=== PATIENT | female | born 1970 | race Hispanic/Latino ===

== ENCOUNTER → 2023-07-01 | Emergency (ER) | payer OTHER ==
[~2023-07-01] MED LIST: CEFTRIAXONE 1000 MG/VIAL ONE
--- OUTSIDE RECORDS SUMMARY | 2023-07-01 11:44 | XMS REPORT | Continuity of Care Document ---
Author Name Unknown Address [address] [place] [address] [facility] Address [address] 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 [facility] [id number] Mixed hyperlipid emia Problem Active [facility] Allergies, Adverse Reactions, Alerts Allergy Name Allergy Type Status Severity Reaction(s) Onset Date Inactive Date Treating Clinician Comments Source meperidi ne meperidi ne Active blood pressure going up/down [facility] NO KNOWN ALLERGIE S Drug Class Active [facility] Social History Social Habit Start Date Stop Date Quantity Comments Source Sex Assigned At [facility] History of Tobacco Use [facility] Exposure to SARS-CoV-2 (event) Not sure [facility] Smoking Status Start Date Stop Date Source Unknown if ever smoked [facility] Never Smoker [facility] Medications Ordered Medication Name Filled Medication Name Start Date Stop Date Current Medication? Ordering Clinician Indication Dosage Frequency Signature (SIG) Comments Components Source Bactrim DS 800-160 MG Bactrim DS 800-160 MG 2019-05 006 00:00: 00 02-19 00:00 :00 No 1{table t} QD Bactrim DS 800-160 MG Divalproex Sodium ER Divalproex Sodium ER Yes Erika Aldrich 1 tablet [facility] Lamotrigine Lamotrigine Yes Erika Nate 1 tablet [facility] Divalproex Sodium ER 500 MG Divalproex Sodium ER 500 MG No 1{table t} BID Divalproex Sodium ER 500 MG Lamotrigine 100 MG Lamotrigine 100 MG No 1{table t} BID Lamotrigin e 100 MG Divalproex Sodium ER 500 MG Divalproex Sodium ER 500 MG No 1{table t} BID Divalproex Sodium ER 500 MG Lamotrigine 100 MG Lamotrigine 100 MG No 1{table t} BID Lamotrigin e 100 MG Lamotrigine 100 MG Lamotrigine 100 MG No 1{table t} BID Lamotrigin e 100 MG Divalproex Sodium ER 500 MG Divalproex Sodium ER 500 MG No 1{table t} BID Divalproex Sodium ER 500 MG Valacyclovi r HCl 1 GM Valacyclovi r HCl 1 GM No 1{table t} TID Valacyclov ir HCl 1 GM Divalproex Sodium ER 500 MG Divalproex Sodium ER 500 MG No 1{table t} BID Divalproex Sodium ER 500 MG Valacyclovi r HCl 1 GM Valacyclovi r HCl 1 GM No 1{table t} TID Valacyclov ir HCl 1 GM Lamotrigine 100 MG Lamotrigine 100 MG No 1{table t} BID Lamotrigin e 100 MG Vital Signs Vital Name Observation Time Observation Value Comments Jarocho spencer height 2020-04-04 11:00:00 61 [in_i] Commo n [facility] weight 2020-04-04 11:00:00 113 [lb_av] Comm on [facility] bmi 2020-04-04 11:00:00 21.35 kg/m2 Comm on [facility] height 2020-03-24 14:40:00 61 [in_i] Commo n [facility] weight 2020-03-24 14:40:00 112.6 [lb_av] Co mmon [facility] temperature 2020-03-24 14:40:00 97.2 [degF] Com mon [facility] bmi 2020-03-24 14:40:00 21.27 kg/m2 Comm on [facility] oximetry 2020-03-24 14:40:00 99 % Commo n [facility] respiratory rate 2020-03-24 14:40:00 16 /min [facility] blood pressure systolic 2020-03-24 14:40:00 111 mm[Hg] Common [facility] blood pressure diastolic 2020-03-24 14:40:00 71 mm[Hg] Common [facility] height 2020-02-26 09:00:00 61 [in_i] Commo n [facility] weight 2020-02-26 09:00:00 114.1 [lb_av] Co mmon [facility] temperature 2020-02-26 09:00:00 97.3 [degF] Com [facility] bmi 2020-02-26 09:00:00 21.56 kg/m2 Comm on [facility] oximetry 2020-02-26 09:00:00 96 % Commo n [facility] blood pressure systolic 2020-02-26 09:00:00 111 mm[Hg] [facility] diastolic 2020-02-26 09:00:00 73 mm[Hg] [facility] Encounters Start Date/Time End Date/Time Encounter Type Admission Type Attending [facility] Care Facility Care Department Encounter ID Source 2021-06-10 12:07:11 [facility] [id number] [facility] 2021-06-10 12:03:05 [facility] [id number] [facility] 2021-06-10 11:39:35 [facility] [id number] [facility] 2021-06-10 11:39:08 [facility] [id number] [facility] 2021-06-10 11:34:08 [facility] [id number] [facility] 2021-06-10 11:19:19 [facility] [id number] [facility] 2021-06-10 11:16:17 [facility] [id number] [facility] 2020-09-04 09:03:43 2020-09-04 09:23:43 Laboratory Only Lab, Adc Fam Pob Tara Farris [facility] [id number] [facility] 2020-09-04 08:40:00 2020-09-04 08:40:00 Outpatient R [facility] [id number] [facility] 2020-09-04 08:40:00 2020-09-04 08:40:00 Outpatient R TARA JONES [facility] [id number] [facility] 2020-04-04 00:00:00 2020-04-04 00:00:00 OFFICE VISIT EST PT LEVEL 3 [facility] [id number] [facility] 2020-03-24 00:00:00 2020-03-24 00:00:00 OFFICE VISIT EST PT LEVEL 3 [facility] [id number] [facility] 2020-02-26 00:00:00 2020-02-26 00:00:00 (PROC) Procedure [facility] [id number] [facility] 2020-02-13 00:00:00 2020-02-13 00:00:00 (TEL) STLMLC ST[facility] [id number] [facility] 2020-01-03 09:17:00 2020-01-03 09:17:00 [facility] [id number] [facility] 2019-12-26 11:15:00 2019-12-26 11:15:00 [facility] [id number] [facility] 2019-12-21 09:30:00 2019-12-21 09:30:[address] [facility] [address] [facility] [id number] [facility] 2019-09-10 13:45:00 2019-09-10 13:45:00 [facility] [address] [facility] [id number] [facility]
[2023-07-01 12:40] LABS: Absolute Lymphocytes (CBC) 2.3 K/uL (0.7-4.9); Hematocrit 35.8 % (36.0-45.0); Lymphocytes % 19.8 % (15.3-44.8); MCV 91.4 fL (80-100); Platelets 296 thou/uL (152-406); RBC Red Blood Cell Count 3.91 M/uL (3.86-4.86)
[2023-07-01 12:56] LABS: Specific Gravity 1.019 (1.005-1.030); Urine Bacteria >50 /HPF (<20); Urine Bilirubin NEGATIVE (Negative); Urine Blood 3+ (OVER) (Negative); Urine Clarity Extremely Turbid (Clear); Urine Color Dark-Brown (Yellow); Urine Glucose NEGATIVE (Negative); Urine Mucus Slight /HPF (None Seen); Urine Protein 2+ (Negative); Urine RBC >50 /HPF (None Seen); Urine Urobilinogen Normal (Normal)
[2023-07-01 13:06] LABS: Albumin 3.6 g/dL (3.4-5.0); Bilirubin Total 0.3 mg/dL (0.2-1.0); Potassium 3.8 mEq/L (3.5-5.1); Protein, Total 8.1 g/dL (6.4-8.2)
--- NOTE | 2023-07-01 14:33 | RAD REPORT ---
EXAM DESCRIPTION: CT - Abdomen Pelvis W Contrast - 07/01/2023 1:41 pm CLINICAL HISTORY: back pain, hematuria COMPARISON: No comparisons TECHNIQUE: Thin cut axial CT imaging of the abdomen and pelvis was performed following intravenous a dministration of iodine contrast. Multiplanar reformats were generated and reviewed. All CT scans are performed using dose optimization technique as appropriate and may include automated exposure control or mA/KV adjustment according to patient size. FINDINGS: No suspicious findings in the lung bases. The liver, spleen, adrenal glands, and pancreas show no suspicious findings. Gallbladder and biliary tree are also without suspicious finding. Sub centimeter right renal cortical lesions, not well characterized, but statistically suggest small cysts. Symmetric renal function is seen with no hydronephrosis or suspicious renal mass. No dilated bowel loops or bowel wall thickening. No free air, free fluid or inflammatory stranding. N o hernia, mass or bulky lymphadenopathy. The urinary bladder is decompressed which limits evaluation, however with diffuse wall thickening and mucosal hyperenhancement. . No suspicious bony findings. IMPRESSION: Decompression of the urinary bladder limits evaluation, however there is diffuse wall th ickening with mucosal hyperenhancement, please correlate clinically for suggestion of acute cystitis. No other acute or suspicious intra-abdominal process.
--- NOTE | 2023-07-01 15:56 | EDPHYS ---
Physician Documentation [facility] Name: Arely Carl Age: 52 yrs Sex: Female : 1970 Arrival Date: 07/01/2023 Time: 11:40 Bed 12 Private MD: ED Physician Star Ferrell HPI: 07/01 14:00 This 52 yrs old Female presents to ER via Ambulatory with complaints of blood rn in urine, Back Pain. 14:00 The patient presents with urinary symptoms, hematuria. Onset: The symptoms/episode rn began/occurred today. Modifying factors: The symptoms are alleviated by nothing, the symptoms are aggravated by urinating. Associated signs and symptoms: Pertinent negatives: fever, urinary frequency, vaginal bleeding. Severity of symptoms: At their worst the symptoms were mild, in the emergency department the symptoms are unchanged. The patient has not experienced similar symptoms in the past. The patient has not recently seen a physician. Patient reports hematuria that began today, no trauma, no blood thinners. No vomiting. No blood in stool. Reports blood-tinged urine and noticed 1 clot.. Historical: - Allergies: 12:11 Demerol; iw 12:11 Benadryl; iw - PMHx: 12:11 seizures; iw - PSHx: 12:11 hysterectomy; section; ovarian cyst; iw - Immunization history:: Adult Immunizations not up to date. - Social history:: Smoking status: Patient denies any tobacco usage or history of. - Family history:: not pertinent. ROS: 14:00 Constitutional: Negative for fever, chills, and weight loss, Eyes: Negative for injury, rn pain, redness, and discharge, Cardiovascular: Negative for chest pain, palpitations, and edema, Respiratory: Negative for shortness of breath, cough, wheezing, and pleuritic chest pain, Abdomen/GI: Negative for abdominal pain, nausea, vomiting, diarrhea, and constipation, Back: Positive for lower back pain : Positive for hematuria MS/Extremity: Negative for injury and deformity, Skin: Negative for injury, rash, and discoloration, Neuro: Negative for headache, weakness, numbness, tingling, and seizure, Exam: 14:00 Constitutional: This is a well developed, well nourished patient who is awake, alert, rn and in no acute distress. Eyes: Normal conjunctiva Cardiovascular: Regular rate and rhythm. No pulse deficits. Respiratory: No increased work of breathing, no retractions or nasal flaring. Abdomen/GI: Soft, nontender Back: No CVA tenderness Neuro: Awake and alert, GCS 15. Normal gait. Vital Signs: 12:10 BP 124 / 82; Pulse 106; Resp 16; Pulse Ox 100% ; iw 12:12 Temp 98.4; Weight 52.16 kg; Height 5 ft. 1 in. ; Pain 4/10; iw 15:20 BP 114 / 85; Pulse 87; Resp 16 S; Pulse Ox 100% on R/A; aa5 12:12 Body Mass Index 21.73 (52.16 kg, 154.94 cm) iw 12:12 Pain Scale: Adult iw MDM: 11:47 Patient medically screened. rn 15:54 Differential diagnosis: urinary tract infection, Cystitis, pyelonephritis, kidney rn cancer. Differential diagnosis: malignancy. Data reviewed: vital signs, nurses notes. Data reviewed: lab test result(s), radiologic studies, CT scan, and as a result, I will discharge patient. Counseling: I had a detailed discussion with the patient and/or guardian regarding the historical points, exam findings, and any diagnostic results supporting the discharge/admit diagnosis, lab results, radiology results, the need for outpatient follow up, to return to the emergency department if symptoms worsen or persist or if there are any questions or concerns that arise at home. Special discussion: I discussed with the patient/guardian in detail that at this point there is no indication for admission to the hospital. It is understood, however, that if the symptoms persist or worsen the patient needs to return immediately for re-evaluation. ED course: I have personally reviewed all of the results, including but not limited to blood tests and imaging deemed necessary to safely discharge this patient at this time. All results given to and printed out for patient. I personally went over all the results with the patient and answered all questions. Patient will follow-up with PCP and or specialist as discussed. Return precautions given and understood.. 07/01 12:13 Order name: CBC with Diff; Complete Time: 13:55 rn 07/01 12:13 Order name: CMP; Complete Time: 13:55 rn 07/01 12:13 Order name: Urinalysis w/ reflexes; Complete Time: 13:55 rn 07/01 13:00 Order name: Urine Culture EDMS 07/01 12:13 Order name: CT Abd/Pelvis - IV Contrast Only; Complete Time: 14:36 rn 07/01 12:13 Order name: IV Saline Lock; Complete Time: 12:25 rn 07/01 12:13 Order name: Labs collected and sent; Complete Time: 12:25 rn Administered Medications: 15:10 Drug: Rocephin IV 1 grams IV at calculated rate once; Given slow IV push per pharmacy aa5 instructions Route: IV; Rate: calculated rate; Site: right antecubital; Disposition Summary: 07/01/23 15:55 Discharge Ordered Notes: Location: Home rn Problem: new rn Symptoms: have improved rn Condition: Stable rn Diagnosis - UTI/ Urinary tract infection, site not specified rn - Acute cystitis with hematuria rn Followup: rn - With: Private Physician - When: As needed - Reason: Recheck today's complaints, Re-evaluation by your physician Discharge Instructions: - Discharge Summary Sheet rn - Hematuria, Adult rn - Urinary Tract Infection, Adult rn Forms: - Medication Reconciliation Form rn - Thank You Letter rn - Antibiotic event planning intern - Prescription Opioid Use rn - Patient Portal Instructions rn - Leadership Thank You Letter rn Prescriptions: - cefpodoxime 100 mg Oral Tablet - take 2 tablets ORAL route every 12 hours for 10 days take with food; 40 tablet; rn Refills: 0, Product Selection Permitted Signatures: Dispatcher [employer] Lydia Ni, RN Star Gutierrez MD MD rn Calderon, Audri, RN RN aa5
--- NOTE | 2023-07-01 15:56 | ER ---
Nurse's Notes [facility] Name: Arely Carl Age: 52 yrs Sex: Female : 1970 Arrival Date: 07/01/2023 Time: 11:40 Bed 12 Private MD: Diagnosis: UTI/ Urinary tract infection, site not specified;Acute cystitis with hematuria Presentation: 07/01 12:10 Chief complaint: Patient states: blood in urine since this morning and back pain , iw denies vaginal bleeding. Coronavirus screen: At this time, the client does not indicate any symptoms associated with coronavirus-19. Ebola Screen: Patient negative for fever greater than or equal to 101.5 degrees Fahrenheit, and additional compatible Ebola Virus Disease symptoms Patient denies exposure to infectious person. Patient denies travel to an Ebola-affected area in the 21 days before illness onset. No symptoms or risks identified at this time. Initial Sepsis Screen: Does the patient meet any 2 criteria? No. Patient's initial sepsis screen is negative. Does the patient have a suspected source of infection? No. Patient's initial sepsis screen is negative. Risk Assessment: Do you want to hurt yourself or someone else? Patient reports no desire to harm self or others. Onset of symptoms was July 01, 2023. 12:10 Method Of Arrival: Ambulatory iw 12:10 Acuity: ANTONIO 3 iw Historical: - Allergies: 12:11 Demerol; iw 12:11 Benadryl; iw - PMHx: 12:11 seizures; iw - PSHx: 12:11 hysterectomy; section; ovarian cyst; iw - Immunization history:: Adult Immunizations not up to date. - Social history:: Smoking status: Patient denies any tobacco usage or history of. - Family history:: not pertinent. Assessment: 15:10 Reassessment: Patient is alert, oriented x 3, equal unlabored respirations, skin aa5 warm/dry/pink. 16:10 Reassessment: Patient is alert, oriented x 3, equal unlabored respirations, skin aa5 warm/dry/pink. Vital Signs: 12:10 BP 124 / 82; Pulse 106; Resp 16; Pulse Ox 100% ; iw 12:12 Temp 98.4; Weight 52.16 kg; Height 5 ft. 1 in. ; Pain 4/10; iw 15:20 BP 114 / 85; Pulse 87; Resp 16 S; Pulse Ox 100% on R/A; aa5 12:12 Body Mass Index 21.73 (52.16 kg, 154.94 cm) iw 12:12 Pain Scale: Adult ED Course: 11:43 Patient arrived in ED. mg5 11:47 Star Ferrell MD is Attending Physician. rn 12:11 Triage completed. iw 12:12 Arm band placed on. iw 12:25 Inserted saline lock: 22 gauge in left antecubital area, using aseptic technique. mb9 12:25 CBC with Diff Sent. mb9 12:25 CMP Sent. mb9 12:25 Urinalysis w/ reflexes Sent. mb9 13:43 CT Abd/Pelvis - IV Contrast Only In Process Unspecified. EDMS 16:10 No provider procedures requiring assistance completed. IV discontinued, intact, aa5 bleeding controlled, No redness/swelling at site. Pressure dressing applied. Administered Medications: 15:10 Drug: Rocephin IV 1 grams IV at calculated rate once; Given slow IV push per pharmacy aa5 instructions Route: IV; Rate: calculated rate; Site: right antecubital; Outcome: 15:55 Discharge ordered by MD. rn 16:10 Discharged to home ambulatory, with significant other, aa5 16:10 Condition: stable 16:10 Discharge instructions given to patient, Instructed on discharge instructions, follow up and referral plans. medication usage, Demonstrated understanding of instructions, follow-up care, medications, Prescriptions given X 1, 16:13 Patient left the ED. aa5 Signatures: Dispatcher [employer] EDMS Lydia Hernandez RN RN Star Ferrell MD MD rn Calderon, Audri, RN RN aa5 Oma Zarate RN RN Veronika Dave mg5
[2023-07-01 16:39] VITALS: BP 114/85; TEMP 98.4; O2SAT 100
== END ==
LOC: ER 11:40
DX: N30.01 Acute cystitis with hematuria (principal); Z88.5 Allergy status to narcotic agent; Z88.8 Allergy status to other drugs, medicaments and biological substances
CPT/HCPCS: 87088; 85025; 81001; 87086; 36415; 87077; 87186; 80053; 74177; 96374; 99284; Q9967; J0696

== ENCOUNTER 2024-05-30 08:34 | Emergency (ER) | payer OTHER ==
--- OUTSIDE RECORDS SUMMARY | 2024-05-30 08:38 | XMS REPORT | Continuity of Care Document ---
Author Name Unknown Address [address] [facility] [place] [address] [facility] thconnect Address [address] [facility] [place] [address] Care Team Providers Care Machine Bobbin Winder Name Role Phone PCP, PATIENT DOES NOT HAVE A Primary Care Physic zaynab Unavailable Marjorie Lowe Attending Clinician Unavail able Leonardo Mc Attending Clinician Unavailable Shaggy Pandey Attending Clinician [phone] Unknown, Attending Attending Clinician Unavailab SHAGGY Subramanian Attending Clinician Unavailable Lab, Adc Fam Pob I Attending Clinician Unavailab Tara Valdovinos Attending Clinician [phone] TARA JONES Attending Clinician Unavailable Payers Payer Name Policy Type Policy Number Effective Date Expirati on Date Source [employer] 53 [id number] 2019 00:00:00 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 [id number] Mixed hyperlipid emia Problem Active [facility] [id number] Seasonal allergies Problem [facility] [id number] Seizure disorder Problem [facility] [id number] Pure hypertrigl yceridemia Problem [facility] [id number] Normocytic anemia Problem [facility] Allergies, Adverse Reactions, Alerts Allergy Name Allergy Type Status Severity Reaction(s) Onset Date Inactive Date Treating Clinician Comments Source NO KNOWN ALLERGIE S Drug Class Active [facility] diphenhy dramine diphenhy dramine Active had seizure [facility] meperidi ne meperidi ne Active blood pressure going up/down [facility] Social History Social Habit Start Date Stop Date Quantity Comments Source Sex Assigned At [facility] History of Tobacco Use [facility] Exposure to SARS-CoV-2 (event) Not sure [facility] Sexual orientation U [facility] Smoking Status Start Date Stop Date Source Tobacco smoking consumption unknown [facility] Never Smoker [facility] Medications Ordered Medication Name Filled Medication Name Start Date Stop Date Current Medication? Ordering Clinician Indication Dosage Frequency Signature (SIG) Comments Components Source levoFLOXaci n 750 MG levoFLOXaci n 750 MG 2023-05 00:00: 00 No 1{table t} QD levoFLOXac in 750 MG predniSONE 20 mg tablet 09-30 00:00: 00 10-06 04:59 :00 No [id number] 40mg Take 2 tablets by mouth in the morning for 5 days. [facility] dexamethaso ne (DECADRON) injection 10 mg 09-29 18:30: 00 09-29 17:59 :00 No [id number] 10mg 10 mg, Intramuscu lar, ONCE, 1 dose, On Tue09/30/23 at 1330, Routine [facility] promethazin e-dextromet horphan 6.25-15 mg/5 mL syrup 09-29 00:00: 00 Yes [id number] 5mL Take 5 mL by mouth 4 (four) times daily as needed for Cough. [facility] albuterol 90 mcg/actuati on inhaler 09-29 00:00: 00 Yes [id number] 2{puff} Inhale 2 Puffs every 6 (six) hours as needed for Bronchospa sm. [facility] lamoTRIgine 100 MG lamoTRIgine 100 MG No 1{table t} BID lamoTRIgin e 100 MG [place] 3 [place] 3 No [place] 3 Divalproex Sodium ER 500 MG Divalproex Sodium ER 500 MG No 1{table t} BID Divalproex Sodium ER 500 MG Vital Signs Vital Name Observation Time Observation Value Comments S johanna height 2024-05-25 10:30:00 61 [in_i] Commo n [facility] weight 2024-05-25 10:30:00 111 [lb_av] Comm on [facility] temperature 2024-05-25 10:30:00 97.2 [degF] Com [facility] bmi 2024-05-25 10:30:00 20.97 kg/m2 Comm on [facility] oximetry 2024-05-25 10:30:00 98 % Commo n [facility] blood pressure systolic 2024-05-25 10:30:00 112 mm[Hg] [facility] blood pressure diastolic 2024-05-25 10:30:00 60 mm[Hg] [facility] height 2024-05-03 15:30:00 61 [in_i] Commo n [facility] weight 2024-05-03 15:30:00 112 [lb_av] Comm on [facility] temperature 2024-05-03 15:30:00 97.2 [degF] Com [facility] bmi 2024-05-03 15:30:00 21.16 kg/m2 Comm on [facility] oximetry 2024-05-03 15:30:00 96 % Commo n [facility] blood pressure systolic 2024-05-03 15:30:00 126 mm[Hg] Common [facility] blood pressure diastolic 2024-05-03 15:30:00 62 mm[Hg] [facility] Systolic blood pressure 2023-09-30 17:39:00 127 mm[Hg] [facility] Diastolic blood pressure 2023-09-30 17:39:00 85 mm[Hg] [facility] Heart rate 2023-09-30 17:39:00 119 /min [facility] acute hospital Body temperature 2023-09-30 17:39:00 37.06 Barb [facility] Respiratory rate 2023-09-30 17:39:00 18 /min [facility] Body height 2023-09-30 17:39:00 154.9 cm [facility] Body weight 2023-09-30 17:39:00 49.805 kg [facility] BMI 2023-09-30 17:39:00 20.75 kg/m2 [facility] Oxygen saturation in Arterial blood by Pulse oximetry 2023-09-30 17:39:00 98 /min [facility] height 2020-04-04 11:00:00 61 [in_i] Commo n [facility] weight 2020-04-04 11:00:00 113 [lb_av] Comm on [facility] bmi 2020-04-04 11:00:00 21.35 kg/m2 Comm on [facility] height 2020-03-24 14:40:00 61 [in_i] Commo n [facility] weight 2020-03-24 14:40:00 112.6 [lb_av] Co mmon [facility] temperature 2020-03-24 14:40:00 97.2 [degF] Com mon [facility] bmi 2020-03-24 14:40:00 21.27 kg/m2 Comm on [facility] oximetry 2020-03-24 14:40:00 99 % Commo n [facility] respiratory rate 2020-03-24 14:40:00 16 /min Common [facility] blood pressure systolic 2020-03-24 14:40:00 111 mm[Hg] Common [facility] blood pressure diastolic 2020-03-24 14:40:00 71 mm[Hg] Common Spiri [facility] height 2020-02-26 09:00:00 61 [in_i] Commo n [facility] weight 2020-02-26 09:00:00 114.1 [lb_av] Co mmon [facility] temperature 2020-02-26 09:00:00 97.3 [degF] Com mon [facility] bmi 2020-02-26 09:00:00 21.56 kg/m2 Comm on [facility] oximetry 2020-02-26 09:00:00 96 % Commo n [facility] blood pressure systolic 2020-02-26 09:00:00 111 mm[Hg] [facility] blood pressure diastolic 2020-02-26 09:00:00 73 mm[Hg] [facility] height 2020-02-26 09:00:00 61 [in_i] Commo n [facility] weight 2020-02-26 09:00:00 114.1 [lb_av] Co mmon [facility] temperature 2020-02-26 09:00:00 97.3 [degF] Com mon [facility] bmi 2020-02-26 09:00:00 21.56 kg/m2 Comm on [facility] oximetry 2020-02-26 09:00:00 96 % Commo n [facility] blood pressure systolic 2020-02-26 09:00:00 111 mm[Hg] [facility] blood pressure diastolic 2020-02-26 09:00:00 73 mm[Hg] [facility] Procedures Procedure Date / Time Performed Performing Clinicia n Source POCT MOLECULAR STREP 2023-09-30 17:30:00 Unknown, Atte nadineing [facility] Encounters Start Date/Time End Date/Time Encounter Type Admission Type Attending [facility] Care Facility Care Department Encounter ID Source 2024-05-23 11:06:00 [facility] [id number] [facility] 2024-05-03 15:01:00 Outpatient Marjorie Lowe [facility] [id number] [facility] 2024-05-01 08:59:00 Outpatient [facility] [id number] [facility] 2021-06-10 12:07:11 Outpatient Mc, Leonardo [facility] [id number] [facility] 2021-06-10 12:03:05 Outpatient Mc, Leonardo [facility] [id number] [facility] 2021-06-10 11:39:35 Outpatient Mc, Leonardo [facility] [id number] [facility] 2021-06-10 11:39:08 Outpatient Mc, Leonardo [facility] [id number] [facility] 2021-06-10 11:34:08 Outpatient Mc, Leonardo [facility] [id number] [facility] 2021-06-10 11:19:19 Outpatient Mc, Leonardo [facility] [id number] [facility] 2021-06-10 11:16:17 Outpatient Mc, Leonardo [facility] [id number] [facility] 2024-05-25 00:00:00 2024-05-25 00:00:00 OFFICE VISIT ESTAB PT LEVEL [id number] [facility] 2024-05-03 00:00:00 2024-05-03 00:00:00 (MEDICAL PLANNER) New Patient [facility] [id number] [facility] 2023-09-30 12:00:00 2023-09-30 13:01:23 Urgent Care Shaggy Guerra, Attending [facility] [id number] [facility] 2023-09-30 12:00:00 2023-09-30 13:01:23 Outpatient R WAGNER BELENJOCELYNE [facility] [id number] [facility] 2020-09-04 09:03:43 2020-09-04 09:23:43 Laboratory Only Lab, Adc Fam Pob Tara Farris [facility] Office [facility] [id number] [facility] 2020-09-04 08:40:00 2020-09-04 08:40:00 Outpatient R [facility] [id number] [facility] 2020-09-04 08:40:00 2020-09-04 08:40:00 Outpatient R TARA JONES [facility] [id number] [facility] 2020-04-04 00:00:00 2020-04-04 00:00:00 OFFICE VISIT EST PT LEVEL [id number] [facility] 2020-03-24 00:00:00 2020-03-24 00:00:00 OFFICE VISIT EST PT LEVEL [id number] [facility] 2020-02-26 00:00:00 2020-02-26 00:00:00 (PROC) Procedure [facility] [id number] [facility] 2020-02-13 00:00:00 2020-02-13 00:00:00 (TEL) [facility] [id number] [facility] 2020-01-03 09:17:00 2020-01-03 09:17:00 [facility] [id number] [facility] 2019-12-26 11:15:00 2019-12-26 11:15:00 [facility] [id number] [facility] 2019-12-21 09:30:00 2019-12-21 09:30:00 [facility] [id number] [facility] 2019-09-10 13:45:00 2019-09-10 13:45:00 Outpatient [facility] [id number] [facility] Results Test Description Test Time Test Comments Results Result Co mments Source [facility]
[2024-05-30] MEDS ORDERED: KETOROLAC 30 MG/ML INJ ONE (08:59)
[2024-05-30] MEDS ORDERED: NA CHLORIDE 0.9% 500 ML ONE (08:59)
[2024-05-30 09:14] LABS: Absolute Basophils 0.1 K/uL (0-0.5); Absolute Eosinophils 0.1 K/uL (0-0.5); Absolute Lymphocytes (CBC) 2.8 K/uL (0.7-4.9); Absolute Neutrophil 3.4 K/uL (1.8-8.0); Basophils % 0.8 % (0-1.3); Eosinophils % 1.8 % (0-4.4); Hematocrit 34.3 % (36.0-45.0); Hemoglobin 11.3 g/dL (12.0-15.0); MCH 29.7 pg (27.0-35.0); MCHC 32.8 g/dL (32.0-36.0); MCV 90.4 fL (80-100); MPV 8.4 fL (7.6-11.3); Monocytes % 13.6 % (3.3-12.3); Neutrophils % 45.8 % (41.7-73.7); Nucleated Red Blood Cells % 0.1 % (0-0); Platelets 304 thou/uL (152-406); RBC Red Blood Cell Count 3.79 M/uL (3.86-4.86); Red Cell Distribution Width 14.1 % (12.1-15.2)
[2024-05-30 09:30] LABS: AST/SGOT 11 U/L (15-37); Albumin 2.9 g/dL (3.4-5.0); Albumin/Globulin Ratio 0.6 (1.1-1.8); Alkaline Phosphatase 83 U/L (45-117); Anion Gap 7.9 mEq/L (5.0-15.0); BUN Blood Urea Nitrogen 28 mg/dL (7-18); Bicarbonate 28 mEq/L (21-32); Glomerular Filtration Rate 69 ml/min (=/>90); Glucose Level 103 mg/dL (74-106); Magnesium 2.1 mg/dL (1.6-2.4); Potassium 3.9 mEq/L (3.5-5.1); Protein, Total 7.9 g/dL (6.4-8.2); Sodium Level 135 mEq/L (136-145)
[2024-05-30 09:31] LABS: ALT/SGPT < 14 U/L (13-56); Bilirubin Direct < 0.2 mg/dL (0-0.2); Bilirubin Total < 0.2 mg/dL (0.2-1.0)
--- NOTE | 2024-05-30 09:53 | RAD REPORT ---
EXAM: CT Head Brain Wo Cont HISTORY: left mastoid/TMJ pain (recent otitis);Headache COMPARISON: None TECHNIQUE: Multiple contiguous axial images were obtained for a CT of the brain without contrast. Sag ittal and coronal reformats were performed. One or more of the following dose reduction techniques were used: Automated exposure control, adjus tment of the mA and kV according to patient size, and iterative reconstruction. Unless otherwise specified, incidental findings do not require dedicated imaging follow-up. FINDINGS: No evidence of hydrocephalus, intracranial hemorrhage, or extra-axial fluid collection. The brain is normal in morphology. The calvarium is intact. The visualized paranasal sinuses. Patchy opacification of the left mastoid a ir cells. IMPRESSION: No evidence of acute intracranial abnormality. Partial left mastoid effusion.
[2024-05-30] MEDS ORDERED: Levofloxacin500mg IV 500 MG/100 ML BAG IV ONE (10:12)
[2024-05-30] MEDS ORDERED: VANCOMYCIN 1 GM/VIAL ONE (10:13)
[2024-05-30] MEDS ORDERED: NA CHLORIDE 0.9% 250 ML ONE (10:13)
--- NOTE | 2024-05-30 11:00 | ER ---
Nurse's Notes [facility] Name: Arely Carl Age: 53 yrs Sex: Female : 1970 Arrival Date: 05/30/2024 Time: 08:34 Bed 5 Private MD: Diagnosis: Left mastoiditis, headache Presentation: 05/30 08:46 Chief complaint: Patient states: Severe L sided LOGAN since last night. Coronavirus ll1 screen: Client denies travel out of the [place] in the last 14 days. At this time, the client does not indicate any symptoms associated with coronavirus-19. Ebola Screen: Patient denies travel to an Ebola-affected area in the 21 days before illness onset. Initial Sepsis Screen: Does the patient meet any 2 criteria? No. Patient's initial sepsis screen is negative. Does the patient have a suspected source of infection? No. Patient's initial sepsis screen is negative. Risk Assessment: Do you want to hurt yourself or someone else? Patient reports no desire to harm self or others. Onset of symptoms was May 29, 2024. 08:46 Method Of Arrival: Ambulatory ll1 08:46 Acuity: ANTONIO 3 ll1 Triage Assessment: 08:47 General: Appears distressed, uncomfortable, Behavior is calm, cooperative, appropriate ll1 for age. Pain: Complains of pain in L LOGAN. Neuro: Reports headache in left since last night. Historical: - Allergies: 08:36 Benadryl; ll1 08:36 Demerol; ll1 - PMHx: 08:36 Seizures; ll1 - PSHx: 08:36 section; hysterectomy; ovarian cyst; ll1 - Immunization history:: Adult Immunizations up to date. - Infectious Disease History:: Denies. - Social history:: Smoking status: Patient denies any tobacco usage or history of. Screenin:51 [facility] ED Fall Risk Assessment (Adult) History of falling in the last 3 months, ll1 including since admission No falls in past 3 months (0 pts) Confusion or Disorientation No (0 pts) Intoxicated or Sedated No (0 pts) Impaired Gait Yes (1 pt) Mobility Assist Device Used Yes (1 pt) Altered Elimination No (0 pt) Score/Fall Risk Level 0 - 2 = Low Risk Maintained a safe environment, Hourly rounding (assess needs \T\ fall precautionary measures) done. Abuse screen: Denies threats or abuse. Nutritional screening: No deficits noted. Tuberculosis screening: No symptoms or risk factors identified. Assessment: 09:25 Reassessment: No changes from previously documented assessment. Patient and/or family ll1 updated on plan of care and expected duration. Pain level reassessed. Patient is alert, oriented x 3, equal unlabored respirations, skin warm/dry/pink. 10:19 Reassessment: No changes from previously documented assessment. Patient and/or family ll1 updated on plan of care and expected duration. Pain level reassessed. Patient is alert, oriented x 3, equal unlabored respirations, skin warm/dry/pink. 10:30 Reassessment: moved to exam 5 by stretcher so she could watch TV while getting ll1 antibiotics. 11:02 Reassessment: Discharged ordered: pending IV antibiotics infusion. ll1 11:47 Reassessment: No changes from previously documented assessment. Patient and/or family ll1 updated on plan of care and expected duration. Pain level reassessed. Patient is alert, oriented x 3, equal unlabored respirations, skin warm/dry/pink. 12:17 Reassessment: No changes from previously documented assessment. Patient and/or family ll1 updated on plan of care and expected duration. Pain level reassessed. Patient is alert, oriented x 3, equal unlabored respirations, skin warm/dry/pink. Vital Signs: 08:46 BP 149 / 101; Pulse 107; Resp 17; Pulse Ox 100% on R/A; Weight 51.26 kg; Height 5 ft. 1 ll1 in. ; Pain 10/10; 08:54 Pulse 103; Pulse Ox 98% on R/A; ll1 09:24 BP 133 / 87; Pulse 101; Temp 97.6(TE); ll1 09:48 BP 122 / 88; Pulse 96; Resp 16; Pulse Ox 99% on R/A; ll1 10:18 BP 114 / 74; Pulse 88; Resp 16; Pulse Ox 98% ; Pain 8/10; ll1 10:42 BP 116 / 80; Pulse 88; Pulse Ox 98% on R/A; ll1 11:46 BP 111 / 85; Pulse 85; Resp 16; Pulse Ox 100% ; ll1 08:46 Body Mass Index 21.35 (51.26 kg, 154.94 cm) ll1 08:46 Pain Scale: Adult ll1 10:18 Pain Scale: Adult ll1 ED Course: 08:35 Patient arrived in ED. mr 08:36 Annamarie Mc MD is Attending Physician. sp3 08:36 Arm band placed on Patient placed in an exam room, on a stretcher. ll1 08:37 José Miguel Gordon, MADELINE is Primary Nurse. ll1 08:47 Triage completed. ll1 08:50 Initial lab(s) drawn, by me, sent to lab. Inserted saline lock: 20 gauge in right ll1 antecubital area, using aseptic technique. Blood collected. Flushed with 10 mL NS. 08:51 Patient has correct armband on for positive identification. Bed in low position. Call 1 light in reach. Provided Education on: ER procedures and process. 09:15 CT Head Brain wo Cont In Process Unspecified. EDMS 10:05 called and left a message for Dr. Thomason to call Dr. Mc back for patient eb consultation. 12:16 IV discontinued, intact, bleeding controlled, No redness/swelling at site. Pressure ll1 dressing applied. Administered Medications: 09:24 Drug: Ketorolac IVP 30 mg IVP once Route: IVP; Site: right antecubital; ll1 09:56 Follow up: Response: No adverse reaction; Pain is decreased; RASS: Alert and Calm (0) ll1 09:24 Drug: NS 0.9% IV 500 ml IV at bolus once; to be given as a bolus over 30 minutes Route: ll1 IV; Rate: bolus; Site: right antecubital; 09:55 Follow up: Response: No adverse reaction; IV Status: Completed infusion; IV Intake: ll1 500ml 10:17 Drug: levofloxacin IVPB 500 mg 100 ml IVPB once over 60 mins Volume: 100 ml; Route: ll1 IVPB; Infused Over: 60 mins; Site: right antecubital; 11:06 Follow up: Response: No adverse reaction; IV Status: Completed infusion; IV Intake: ll1 100ml 11:07 Drug: vancoMYCIN IVPB 1 grams IVPB once over 2 hrs Route: IVPB; Infused Over: 2 hrs; ll1 Site: right antecubital; 12:17 Follow up: Response: No adverse reaction; IV Status: Completed infusion; IV Intake: ll1 250ml Medication: 08:51 VIS not applicable for this client. ll1 Intake: 09:55 IV: 500ml; Total: 500ml. ll1 11:06 IV: 100ml; Total: 600ml. ll1 12:17 IV: 250ml; Total: 850ml. ll1 Outcome: 11:00 Discharge ordered by . sp3 12:18 Patient left the ED. 1 Signatures: Dispatcher [employer] EDMS Oma Stover, Ryan Cohenello, José Miguel Hodges, RN RN ll1 Annamarie Mc MD MD sp3
--- NOTE | 2024-05-30 11:00 | EDPHYS ---
Physician Documentation [facility] Name: Arely Carl Age: 53 yrs Sex: Female : 1970 Arrival Date: 05/30/2024 Time: 08:34 Bed 5 Private MD: ED Physician Annamarie Mc HPI: 05/30 09:31 This 53 yrs old Female presents to ER via Ambulatory with complaints of Left sp3 side head pain. 09:31 53-year-old female with history of epilepsy and recent otitis media of the left ear now sp3 presents with left mastoid pain extending into the TMJ joint and generalized headache for the last 2 days. She denies any trauma, fever, neck pain or stiffness, chest pain, shortness of breath, abdominal pain, rash, continued URI symptoms, or any other signs or symptoms on ROS at this time.. Historical: - Allergies: 08:36 Benadryl; ll1 08:36 Demerol; ll1 - PMHx: 08:36 Seizures; ll1 - PSHx: 08:36 section; hysterectomy; ovarian cyst; ll1 - Immunization history:: Adult Immunizations up to date. - Infectious Disease History:: Denies. - Social history:: Smoking status: Patient denies any tobacco usage or history of. ROS: 09:32 Constitutional: Negative for fever, chills, and weight loss, Eyes: Negative for injury, sp3 pain, redness, and discharge, Neck: Negative for injury, pain, and swelling, Cardiovascular: Negative for chest pain, palpitations, and edema, Respiratory: Negative for shortness of breath, cough, wheezing, and pleuritic chest pain, Abdomen/GI: Negative for abdominal pain, nausea, vomiting, diarrhea, and constipation, Back: Negative for injury and pain, MS/Extremity: Negative for injury and deformity, Skin: Negative for injury, rash, and discoloration, Psych: Negative for depression, anxiety, suicide ideation, homicidal ideation, and hallucinations, Allergy/Immunology: Negative for hives, rash, and allergies, Endocrine: Negative for neck swelling, polydipsia, polyuria, polyphagia, and marked weight changes, Hematologic/Lymphatic: Negative for swollen nodes, abnormal bleeding, and unusual bruising, 09:32 All other systems are negative, Exam: 09:32 Constitutional: This is a well developed, well nourished patient who is awake, alert, sp3 and in no acute distress. Eyes: Pupils equal round and reactive to light, extra-ocular motions intact. Lids and lashes normal. Conjunctiva and sclera are non-icteric and not injected. Cornea within normal limits. Periorbital areas with no swelling, redness, or edema. Neck: Trachea midline, no thyromegaly or masses palpated, and no cervical lymphadenopathy. Supple, full range of motion without nuchal rigidity, or vertebral point tenderness. No Meningismus. Chest/axilla: Normal chest wall appearance and motion. Nontender with no deformity. No lesions are appreciated. Cardiovascular: Regular rate and rhythm with a normal S1 and S2. No gallops, murmurs, or rubs. Normal PMI, no JVD. No pulse deficits. Respiratory: Lungs have equal breath sounds bilaterally, clear to auscultation and percussion. No rales, rhonchi or wheezes noted. No increased work of breathing, no retractions or nasal flaring. Abdomen/GI: Soft, non-tender, with normal bowel sounds. No distension or tympany. No guarding or rebound. No evidence of tenderness throughout. Back: No spinal tenderness. No costovertebral tenderness. Full range of motion. Skin: Warm, dry with normal turgor. Normal color with no rashes, no lesions, and no evidence of cellulitis. MS/ Extremity: Pulses equal, no cyanosis. Neurovascular intact. Full, normal range of motion. Neuro: Awake and alert, GCS 15, oriented to person, place, time, and situation. Cranial nerves II-XII grossly intact. Motor strength 5/5 in all extremities. Sensory grossly intact. Cerebellar exam normal. Normal gait. Psych: Awake, alert, with orientation to person, place and time. Behavior, mood, and affect are within normal limits. 09:32 Head/face: Patient with tenderness to palpation of the left mastoid process.. Vital Signs: 08:46 BP 149 / 101; Pulse 107; Resp 17; Pulse Ox 100% on R/A; Weight 51.26 kg; Height 5 ft. 1 ll1 in. ; Pain 10/10; 08:54 Pulse 103; Pulse Ox 98% on R/A; ll1 09:24 BP 133 / 87; Pulse 101; Temp 97.6(TE); ll1 09:48 BP 122 / 88; Pulse 96; Resp 16; Pulse Ox 99% on R/A; ll1 10:18 BP 114 / 74; Pulse 88; Resp 16; Pulse Ox 98% ; Pain 8/10; ll1 10:42 BP 116 / 80; Pulse 88; Pulse Ox 98% on R/A; ll1 11:46 BP 111 / 85; Pulse 85; Resp 16; Pulse Ox 100% ; ll1 08:46 Body Mass Index 21.35 (51.26 kg, 154.94 cm) ll1 08:46 Pain Scale: Adult ll1 10:18 Pain Scale: Adult ll1 MDM: 08:42 Medical Screening Exam initiated sp3 09:33 Data reviewed: vital signs, nurses notes, lab test result(s), radiologic studies. ED sp3 course: 53-year-old female with headache, left mastoid pain after recent otitis media. Differential diagnosis includes mastoiditis, TMJ inflammation, SCM tendinitis, idiopathic headache, continued ENT pathology, among others. Workup will include general labs, CT scan of the head noncontrast to assess for mastoid air cells, and general supportive care with IV fluids and pain medications as indicated. Disposition pending workup and patient course.. 10:00 ED course: CT demonstrates opacification of left mastoid air cells without osteitis. sp3 WBC count normal. Will treat with IV antibiotics and p.o. meds on discharge with follow-up to ENT.. 10:05 ED course: CT demonstrates opacification of the left mastoid air cells consistent with sp3 clinical presentation. Labs are normal. Pain is improved with some ketorolac. Will treat with vancomycin and Levaquin IV with discharge on p.o. Levaquin and follow-up with ENT. I did call out to Dr. Thomason on-call to see if we can get same-day appointment or at least scheduled soon as possible.. 10:59 ED course: Discussed with Dr. Thomason who will see patient this afternoon in clinic. sp3 Patient given office phone number and she is currently making appointment. Patient will be discharged after antibiotics are completed.. 05/30 08:55 Order name: Basic Metabolic Panel; Complete Time: 09:36 sp3 05/30 08:55 Order name: CBC with Diff; Complete Time: 09:36 sp3 05/30 08:55 Order name: Hepatic Function; Complete Time: 09:36 sp3 05/30 08:55 Order name: Magnesium; Complete Time: 09:36 sp3 05/30 08:55 Order name: CT Head Brain wo Cont; Complete Time: 09:55 sp3 05/30 08:55 Order name: IV Saline Lock; Complete Time: 09:02 sp3 05/30 08:55 Order name: Labs collected and sent; Complete Time: 09:02 sp3 05/30 08:55 Order name: NPO; Complete Time: 08:56 sp3 05/30 08:55 Order name: O2 Sat Monitoring; Complete Time: 08:56 sp3 Administered Medications: 09:24 Drug: Ketorolac IVP 30 mg IVP once Route: IVP; Site: right antecubital; 1 09:56 Follow up: Response: No adverse reaction; Pain is decreased; RASS: Alert and Calm (0) [facility] 09:24 Drug: NS 0.9% IV 500 ml IV at bolus once; to be given as a bolus over 30 minutes Route: ll1 IV; Rate: bolus; Site: right antecubital; 09:55 Follow up: Response: No adverse reaction; IV Status: Completed infusion; IV Intake: ll1 500ml 10:17 Drug: levofloxacin IVPB 500 mg 100 ml IVPB once over 60 mins Volume: 100 ml; Route: ll1 IVPB; Infused Over: 60 mins; Site: right antecubital; 11:06 Follow up: Response: No adverse reaction; IV Status: Completed infusion; IV Intake: ll1 100ml 11:07 Drug: vancoMYCIN IVPB 1 grams IVPB once over 2 hrs Route: IVPB; Infused Over: 2 hrs; ll1 Site: right antecubital; 12:17 Follow up: Response: No adverse reaction; IV Status: Completed infusion; IV Intake: ll1 250ml Disposition Summary: 05/30/24 11:00 Discharge Ordered Condition: Stable sp3 Diagnosis - Left mastoiditis, headache sp3 Followup: sp3 - With: Private Physician - When: Upon discharge from the Emergency Department - Reason: Continuance of care Discharge Instructions: - Discharge Summary Sheet eb Forms: - Medication Reconciliation Form sp3 - Antibiotic Education sp3 - Prescription Opioid Use sp3 - Patient Portal Instructions sp3 - Leadership Thank You Letter sp3 Prescriptions: - levofloxacin 500 mg Oral tablet - take 1 tablet ORAL route once daily for 14 days; 14 tablet; Refills: 0, Product sp3 Selection Permitted Signatures: Dispatcher [employer] José Miguel Reynolds RN RN ll1 Annamarie Mc MD MD sp3 Corrections: (The following items were deleted from the chart) 08:55 08:55 BASIC METABOLIC PANEL+C.LAB.BRZ ordered. EDMS EDMS 08:55 08:55 CBC+H.LAB.BRZ ordered. EDMS EDMS 08:55 08:55 HEPATIC FUNCTION+C.LAB.BRZ ordered. EDMS EDMS 08:55 08:55 MAGNESIUM+C.LAB.BRZ ordered. EDMS EDMS 08:55 08:55 Head Brain Wo Cont+CT.RAD.BRZ ordered. EDMS EDMS
[2024-06-01 02:12] VITALS: BP 111/85; TEMP 97.6; O2SAT 100
== END 2024-05-30 12:18 | disposition home or self-care (01) ==
LOC: ER 08:34
DX: H70.92 Unspecified mastoiditis, left ear (principal); R51.9 Headache, unspecified; Z88.5 Allergy status to narcotic agent
CPT/HCPCS: 96365; 96367; 96361; 85025; 80048; 36415; 83735; 80076; 70450; 96375; 99284; J7050; J7040

== ENCOUNTER 2024-05-31 17:31 | Inpatient (IN) | payer OTHER ==
--- OUTSIDE RECORDS SUMMARY | 2024-05-31 17:34 | XMS REPORT | Continuity of Care Document ---
Author Name Unknown Address [address] [facility] [place] [address] [facility] Address [address] [facility] [address] [place] [address] Care Team Providers Care Community Engagement Coordinator Name Role Phone PCP, PATIENT DOES NOT HAVE A Primary Care Physic zaynab Unavailable Marjorie Lowe Attending Clinician Unavail able Leonardo Mc Attending Clinician Unavailable Shaggy Pandey Attending Clinician [phone] Unknown, Attending Attending Clinician Unavailab SHAGGY Subramanian Attending Clinician Unavailable Lab, Adc Fam Pob I Attending Clinician Unavailab Tara Valdovinos Attending Clinician [phone] TARA JONES Attending Clinician Unavailable Payers Payer Name Policy Type Policy Number Effective Date Expirati on Date Source [employer] 53 [id number] 2019 00:00:00 [facility] Problems Condition Name Condition Details Condition Category Status Onset Date Resolution Date Last Treatment Date Treating Clinician Comments Source [id number] 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 [facility] [id number] Mixed hyperlipid emia Problem Active [facility] [id number] Seasonal allergies Problem [facility] [id number] Seizure disorder Problem [facility] [id number] Pure hypertrigl yceridemia Problem [facility] [id number] Normocytic anemia Problem [facility] Allergies, Adverse Reactions, Alerts Allergy Name Allergy Type Status Severity Reaction(s) Onset Date Inactive Date Treating Clinician Comments Source NO KNOWN ALLERGIE S Drug Class Active [facility] diphenhy dramine diphenhy dramine Active had seizure [facility] meperidi ne meperidi ne Active blood pressure going up/down [facility] Social History Social Habit Start Date Stop Date Quantity Comments Source Sex Assigned At [facility] History of Tobacco Use [facility] Exposure to SARS-CoV-2 (event) Not sure [facility] Sexual orientation U [facility] Smoking Status Start Date Stop Date Source Tobacco smoking consumption unknown [facility] Never Smoker [facility] Medications Ordered Medication Name Filled Medication Name Start Date Stop Date Current Medication? Ordering Clinician Indication Dosage Frequency Signature (SIG) Comments Components Source levoFLOXaci n 750 MG levoFLOXaci n 750 MG 2023-05 00:00: 00 No 1{table t} QD levoFLOXac in 750 MG predniSONE 20 mg tablet 09-30 00:00: 00 10-06 04:59 :00 No [id number] 40mg Take 2 tablets by mouth in the morning for 5 days. [facility] dexamethaso ne (DECADRON) injection 10 mg 09-29 18:30: 00 09-29 17:59 :00 No [id number] 10mg 10 mg, Intramuscu lar, ONCE, 1 dose, On Tue09/30/23 at 1330, Routine [facility] promethazin e-dextromet horphan 6.25-15 mg/5 mL syrup 09-29 00:00: 00 Yes [id number] 5mL Take 5 mL by mouth 4 (four) times daily as needed for Cough. [facility] albuterol 90 mcg/actuati on inhaler 09-29 00:00: 00 Yes [id number] 2{puff} Inhale 2 Puffs every 6 (six) hours as needed for Bronchospa sm. [facility] lamoTRIgine 100 MG lamoTRIgine 100 MG No 1{table t} BID lamoTRIgin e 100 MG Reading 3 Reading 3 No Reading 3 Divalproex Sodium ER 500 MG Divalproex Sodium ER 500 MG No 1{table t} BID Divalproex Sodium ER 500 MG Vital Signs Vital Name Observation Time Observation Value Comments S johanna height 2024-05-25 10:30:00 61 [in_i] Commo n [facility] weight 2024-05-25 10:30:00 111 [lb_av] Comm on [facility] temperature 2024-05-25 10:30:00 97.2 [degF] Com [facility] bmi 2024-05-25 10:30:00 20.97 kg/m2 Comm on [facility] oximetry 2024-05-25 10:30:00 98 % Commo n [facility] blood pressure systolic 2024-05-25 10:30:00 112 mm[Hg] [facility] blood pressure diastolic 2024-05-25 10:30:00 60 mm[Hg] [facility] height 2024-05-03 15:30:00 61 [in_i] Commo n [facility] weight 2024-05-03 15:30:00 112 [lb_av] Comm on [facility] temperature 2024-05-03 15:30:00 97.2 [degF] Com [facility] bmi 2024-05-03 15:30:00 21.16 kg/m2 Comm on [facility] oximetry 2024-05-03 15:30:00 96 % Commo n [facility] blood pressure systolic 2024-05-03 15:30:00 126 mm[Hg] Common [facility] blood pressure diastolic 2024-05-03 15:30:00 62 mm[Hg] Common [facility] Systolic blood pressure 2023-09-30 17:39:00 127 mm[Hg] [facility] Diastolic blood pressure 2023-09-30 17:39:00 85 mm[Hg] [facility] Heart rate 2023-09-30 17:39:00 119 /[facility] temperature 2023-09-30 17:39:00 37.06 Barb [facility] Respiratory rate 2023-09-30 17:39:00 18 /min [facility] Body height 2023-09-30 17:39:00 154.9 cm [facility] Body weight 2023-09-30 17:39:00 49.805 kg [facility] BMI 2023-09-30 17:39:00 20.75 kg/m2 [facility] Oxygen saturation in Arterial blood by Pulse oximetry 2023-09-30 17:39:00 98 /min [facility] height 2020-04-04 11:00:00 61 [in_i] Commo n [facility] weight 2020-04-04 11:00:00 113 [lb_av] Comm on [facility] bmi 2020-04-04 11:00:00 21.35 kg/m2 Comm on [facility] height 2020-03-24 14:40:00 61 [in_i] Commo n [facility] weight 2020-03-24 14:40:00 112.6 [lb_av] Co mmon [facility] temperature 2020-03-24 14:40:00 97.2 [degF] Com mon [facility] bmi 2020-03-24 14:40:00 21.27 kg/m2 Comm on [facility] oximetry 2020-03-24 14:40:00 99 % Commo n [facility] respiratory rate 2020-03-24 14:40:00 16 /min Common [facility] blood pressure systolic 2020-03-24 14:40:00 111 mm[Hg] [facility] blood pressure diastolic 2020-03-24 14:40:00 71 mm[Hg] [facility] height 2020-02-26 09:00:00 61 [in_i] Commo n [facility] weight 2020-02-26 09:00:00 114.1 [lb_av] Co mmon [facility] temperature 2020-02-26 09:00:00 97.3 [degF] Com mon [facility] bmi 2020-02-26 09:00:00 21.56 kg/m2 Comm on [facility] oximetry 2020-02-26 09:00:00 96 % Commo n [facility] blood pressure systolic 2020-02-26 09:00:00 111 mm[Hg] [facility] blood pressure diastolic 2020-02-26 09:00:00 73 mm[Hg] Common [facility] height 2020-02-26 09:00:00 61 [in_i] Commo n [facility] weight 2020-02-26 09:00:00 114.1 [lb_av] Co mmon [facility] temperature 2020-02-26 09:00:00 97.3 [degF] Com [facility] bmi 2020-02-26 09:00:00 21.56 kg/m2 Comm on [facility] oximetry 2020-02-26 09:00:00 96 % Commo n [facility] blood pressure systolic 2020-02-26 09:00:00 111 mm[Hg] [facility] blood pressure diastolic 2020-02-26 09:00:00 73 mm[Hg] [facility] Procedures Procedure Date / Time Performed Performing Clinicia n Source POCT MOLECULAR STREP 2023-09-30 17:30:00 Unknown, Atte nding [facility] Encounters Start Date/Time End Date/Time Encounter Type Admission Type Attending [facility] Care Department Encounter ID Source 2024-05-23 11:06:00 [facility] [id number] [facility] 2024-05-03 15:01:00 Outpatient Marjorie Lowe [facility] [id number] [facility] 2024-05-01 08:59:00 Outpatient [facility] [id number] [facility] 2021-06-10 12:07:11 Outpatient Mc, Leonardo [facility] [id number] [facility] 2021-06-10 12:03:05 Outpatient Mc, Leonardo [facility] [id number] [facility] 2021-06-10 11:39:35 Outpatient Mc, Leonardo [facility] [id number] [facility] 2021-06-10 11:39:08 Outpatient Mc, Leonardo [facility] [id number] [facility] 2021-06-10 11:34:08 Outpatient Mc, Leonardo [facility] [id number] [facility] 2021-06-10 11:19:19 Outpatient Mc, Leonardo [facility] [id number] [facility] 2021-06-10 11:16:17 Outpatient Mc, Leonardo [facility] [id number] [facility] 2024-05-25 00:00:00 2024-05-25 00:00:00 OFFICE VISIT ESTAB PT LEVEL 3 [facility] [id number] [facility] 2024-05-03 00:00:00 2024-05-03 00:00:00 (DATA COLLECTOR) New Patient [facility] [id number] [facility] 2023-09-30 12:00:00 2023-09-30 13:01:23 Urgent Care Shaggy Edward, Attending [facility] [id number] [facility] 2023-09-30 12:00:00 2023-09-30 13:01:23 Outpatient R SHAGGY [facility] [id number] [facility] 2020-09-04 09:03:43 2020-09-04 09:23:43 Laboratory Only Lab, Adc Fam Tara Quiroz A [facility] [id number] [facility] 2020-09-04 08:40:00 2020-09-04 08:40:00 Outpatient [facility] [id number] [facility] 2020-09-04 08:40:00 2020-09-04 08:40:00 Outpatient R TARA JONES [facility] [id number] [facility] 2020-04-04 00:00:00 2020-04-04 00:00:00 OFFICE VISIT EST PT LEVEL 3 [facility] [id number] [facility] 2020-03-24 00:00:00 2020-03-24 00:00:00 OFFICE VISIT EST PT LEVEL 3 [facility] [id number] [facility] 2020-02-26 00:00:00 2020-02-26 00:00:00 (PROC) Procedure [facility] [id number] [facility] 2020-02-13 00:00:00 2020-02-13 00:00:00 (TEL) [facility] [id number] [facility] 2020-01-03 09:17:00 2020-01-03 09:17:00 [facility] [id number] [facility] 2019-12-26 11:15:00 2019-12-26 11:15:00 [facility] [id number] [facility] 2019-12-21 09:30:00 2019-12-21 09:30:00 [facility]patient [facility] [id number] [facility] 2019-09-10 13:45:00 2019-09-10 13:45:00 Outpatient [facility] [id number] [facility] Results Test Description Test Time Test Comments Results Result Co mments Source [facility]
--- NOTE | 2024-05-31 19:24 | RAD REPORT ---
EXAMINATION: CT HEAD WITHOUT CONTRAST CT CERVICAL SPINE WITHOUT CONTRAST CLINICAL INDICATION: Female, 53 years old. HEADACHE TECHNIQUE: Axial CT images from the skull base to the vertex without intravenous contrast. Axial CT i mages through the cervical spine were obtained without intravenous contrast. Sagittal and coronal reformatted images were created from the data set. Coronal and sagittal reformatted images were creat ed from the data set. One or more of the following dose reduction techniques were used: Automated exposure control, adjustment of the mA and/or kV according to patient size, and/or iterative reconstr uction. Unless otherwise specified, incidental findings do not require dedicated imaging follow-up. [id number]. COMPARISON: Head CT 05/30/2024 FINDINGS: Head: INTRACRANIAL: No acute intracranial hemorrhage. No hydrocephalus. No mass effect or midline shift. No significant white matter disease VASCULATURE: No visualized abnormalities in the arteries or dural venous sinuses. SCALP/SKULL: No significant soft tissue or osseous abnormalities. SINUSES: Left mastoid fluid. Paranasal sinuses are well aerated. Cervical spine: ALIGNMENT: The cervical spine has normal alignment without scoliosis or spondylolisthesis. BONE: Vertebral body heights are maintained. No aggressive osseous lesions. DEGENERATIVE CHANGES: None significant. SOFT TISSUE: No significant abnormalities in the soft tissue of the neck. The visualized lung apices are clear. IMPRESSION: No acute intracranial abnormality. No acute fracture or traumatic malalignment of the cervical spine.
[2024-05-31] MEDS ORDERED: KETOROLAC 30 MG/ML INJ ONE (19:42)
[2024-05-31] MEDS ORDERED: ONDANSETRON 4 MG/2 ML VIAL ONE (19:42)
[2024-05-31] MEDS ORDERED: NA CHLORIDE 0.9% 1,000 ML ONE (19:43)
[2024-05-31] MEDS ORDERED: MORPHINE 2 MG/ML SYR ONE (19:43)
--- NOTE | 2024-05-31 19:58 | ER ---
Nurse's Notes [facility] Name: Arely Carl Age: 53 yrs Sex: Female : 1970 Arrival Date: 05/31/2024 Time: 17:31 Bed 19 Private MD: Diagnosis: Acute serous otitis media, left ear;Acute mastoiditis;Headache Presentation: 05/31 18:06 Chief complaint: Patient states: L sided neck pain started again after picking up child ll1 from school today. Still hard to move head and still cant swallow. Coronavirus screen: Client denies travel out of the [place] in the last 14 days. At this time, the client does not indicate any symptoms associated with coronavirus-19. Ebola Screen: Patient denies travel to an Ebola-affected area in the 21 days before illness onset. Initial Sepsis Screen: Does the patient meet any 2 criteria? No. Patient's initial sepsis screen is negative. Does the patient have a suspected source of infection? No. Patient's initial sepsis screen is negative. Risk Assessment: Do you want to hurt yourself or someone else? Patient reports no desire to harm self or others. Onset of symptoms was May 31, 2024. 18:06 Method Of Arrival: Ambulatory ll1 18:06 Acuity: ANTONIO 4 ll1 Triage Assessment: 18:06 General: Appears uncomfortable, Behavior is calm, cooperative, appropriate for age. ll1 Pain: Complains of pain in L neck/jaw area Quality of pain is described as aching, Pain began. Musculoskeletal: painful ROM L side jaw Reports pain in L neck/jaw area. CASHIER OFFICE: 22:04 Verified mt4 Historical: - Allergies: 17:44 Benadryl; ll1 17:44 Demerol; ll1 - PMHx: 17:44 Seizures; ll1 - PSHx: 17:44 section; hysterectomy; ovarian cyst; ll1 - Immunization history:: Adult Immunizations up to date. - Infectious Disease History:: Denies. - Social history:: Smoking status: Patient denies any tobacco usage or history of. Screenin:34 [facility] ED Fall Risk Assessment (Adult) History of falling in the last 3 months, mt4 including since admission No falls in past 3 months (0 pts) Confusion or Disorientation No (0 pts) Intoxicated or Sedated No (0 pts) Impaired Gait No (0 pts) Mobility Assist Device Used No (0 pt) Altered Elimination No (0 pt) Score/Fall Risk Level 0 - 2 = Low Risk. Abuse screen: Denies injuries from another. Nutritional screening: No deficits noted. Tuberculosis screening: No symptoms or risk factors identified. Exposure risk/Travel Screening: None identified. Assessment: 19:34 General: Appears in no apparent distress. uncomfortable, Behavior is calm, cooperative, mt4 appropriate for age. Pain: Complains of pain in neck Pain does not radiate. Pain currently is 10 out of 10 on a pain scale. Quality of pain is described as spasm Pain began 1 day ago. Is continuous. Neuro: Level of Consciousness is awake, alert, obeys commands, Oriented to person, place, time, situation, Appropriate for age Woodwork Salvage Inspector are equal bilaterally Moves all extremities. Gait is steady, Speech is normal, Facial symmetry appears normal. Cardiovascular: Capillary refill < 3 seconds. Respiratory: Airway is patent Respiratory effort is even, unlabored, Respiratory pattern is regular, symmetrical. GI: Abdomen is non-distended. : Denies burning with urination. Musculoskeletal: Range of motion: intact in all extremities, Reports pain in neck. 21:00 Reassessment: Patient and/or family updated on plan of care and expected duration. Pain mt4 level reassessed. Patient states feeling better. Vital Signs: 18:06 BP 117 / 91; Pulse 97; Resp 17; Temp 97.1; Pulse Ox 100% ; Weight 50.35 kg; Height 5 ll1 ft. 1 in. ; Pain 8/10; 19:34 BP 123 / 83; Pulse 88; Resp 19; Temp 98(O); Pulse Ox 100% on R/A; Pain 10/10; mt4 20:42 BP 101 / 69; Pulse 84; Resp 16; Pulse Ox 96% on R/A; mt4 21:30 BP 124 / 87; Pulse 89; Resp 16; Pulse Ox 100% on R/A; mt4 18:06 Body Mass Index 20.97 (50.35 kg, 154.94 cm) ll1 18:06 Pain Scale: Adult ll1 19:34 Pain Scale: Adult mt4 Faustino Coma Score: 19:34 Eye Response: spontaneous(4). Motor Response: obeys commands(6). Verbal Response: mt4 oriented(5). Total: 15. 19:56 Eye Response: spontaneous(4). Motor Response: obeys commands(6). Verbal Response: zachery oriented(5). Total: 15. ED Course: 17:34 Patient arrived in ED. mr 17:45 Arm band placed on. ll1 18:08 Triage completed. ll1 18:12 Kenneth Henriquez MD is Attending Physician. zachery 18:53 CT Head C Spine In Process Unspecified. EDMS 19:26 Hemant Tillman, RN is Primary Nurse. mt4 19:34 Patient has correct armband on for positive identification. Fall risk band placed. Bed mt4 in low position. Call light in reach. Side rails up X 1. Provided Education on: PO challenge . Client placed on continuous cardiac and pulse oximetry monitoring. NIBP monitoring applied. Door closed. Lights dimmed. Warm blanket given. Pillow given. Verbal reassurance given. Assisted to bathroom. 19:34 No provider procedures requiring assistance completed. Patient maintains SpO2 mt4 saturation greater than 95% on room air. 19:57 Prince Manzo MD is Hospitalizing Provider. zachery 20:44 EKG done, by communication technician. af3 20:56 Inserted saline lock: 20 gauge in right antecubital area, using aseptic technique. mt4 Blood collected. Flushed with 10 mL NS. 22:03 Patient admitted, IV remains in place. mt4 Administered Medications: 20:05 Drug: Decadron - Dexamethasone IVP 10 mg IVP once Route: IVP; Site: right antecubital; mt4 21:30 Follow up: Response: No adverse reaction mt4 20:06 Drug: NS 0.9% IV 1000 ml IV at 1000 ml once; to be given as a bolus over 60 minutes mt4 Route: IV; Rate: 1000 ml; Site: right antecubital; 21:27 Follow up: Response: No adverse reaction; IV Status: Completed infusion; IV Intake: mt4 1000ml 20:06 Drug: Ketorolac IVP 30 mg IVP once Route: IVP; Site: right antecubital; mt4 21:28 Follow up: Response: No adverse reaction mt4 20:06 Drug: Ondansetron IVP 4 mg IVP once; over 2 minutes Route: IVP; Site: right antecubital;mt4 21:30 Follow up: Response: No adverse reaction mt4 20:09 Drug: morphine IVP or IV 2 mg IVP once over 4 mins Route: IVP; Infused Over: 4 mins; mt4 Site: right antecubital; 21:30 Follow up: Response: No adverse reaction mt4 20:23 Drug: Rocephin IV 2 grams IV at per protocol once; Given slow IV push per pharmarcy mt4 instructions Route: IV; Rate: per protocol; Site: right antecubital; 21:31 Follow up: Response: No adverse reaction mt4 20:23 Drug: vancoMYCIN IVPB 1 grams IVPB once over 2 hrs Route: IVPB; Infused Over: 2 hrs; mt4 Site: right antecubital; 21:31 Follow up: Response: No adverse reaction; IV Status: Infusion continued mt4 20:23 Drug: Diazepam PO 10 mg PO once Route: PO; mt4 21:31 Follow up: Response: No adverse reaction mt4 21:32 Not Given (Patient Refused): morphineor iv 2 mg IVP once over 4 mins mt4 Medication: 19:34 VIS not applicable for this client. mt4 Intake: 21:27 IV: 1000ml; Total: 1000ml. mt4 Outcome: 19:58 Decision to Hospitalize by Provider. zachery 22:03 Admitted to Med/surg accompanied by tech, via wheelchair, room 219, mt4 22:03 Condition: stable 22:03 Instructed on the need for admit, 22:04 Patient left the ED. lg3 Signatures: Dispatcher [employer] EDMS Kenneth Henriquez MD MD cha Rivera, Mary, Reg Reg Yovana Redd, RN RN lg3 José Miguel Gordon RN RN ll1 Hemant Tillman RN RN mt4 Annia Perez3 Corrections: (The following items were deleted from the chart) 18:09 18:06 Pulse 97bpm; Resp 17bpm; Pulse Ox 100%; Temp 97.1F; 50.35 kg; Height 5 ft. 1 in.; ll1 BMI: 20.9; Pain 8/10, Adult; ll1
[2024-05-31] MEDS ORDERED: dexAMETHasone 10 MG/ML VIAL ONE (19:59)
--- NOTE | 2024-05-31 19:59 | EDPHYS ---
Physician Documentation [facility] Name: Arely Carl Age: 53 yrs Sex: Female : 1970 Arrival Date: 05/31/2024 Time: 17:31 Bed 19 Private MD: PREETHI Physician Kenneth Henriquez HPI: 05/31 19:53 This 53 yrs old Female presents to ER via Ambulatory with complaints of Neck zachery pain, head pain. 19:53 The patient presents with a laceration, swelling, tenderness. The complaints affect the zachery left ear and left base of the skull. Onset: The symptoms/episode began/occurred 3 day(s) ago. Modifying factors: The symptoms are alleviated by. CLOTH SECONDS SORTER: 22:04 Verified mt4 Historical: - Allergies: 17:44 Benadryl; ll1 17:44 Demerol; ll1 - PMHx: 17:44 Seizures; ll1 - PSHx: 17:44 section; hysterectomy; ovarian cyst; ll1 - Immunization history:: Adult Immunizations up to date. - Infectious Disease History:: Denies. - Social history:: Smoking status: Patient denies any tobacco usage or history of. ROS: 19:54 Constitutional: Negative for fever, chills, and weight loss, Eyes: Negative for injury, zachery pain, redness, and discharge, Neck: Negative for injury, pain, and swelling, Cardiovascular: Negative for chest pain, palpitations, and edema, Respiratory: Negative for shortness of breath, cough, wheezing, and pleuritic chest pain, Abdomen/GI: Negative for abdominal pain, nausea, vomiting, diarrhea, and constipation, Back: Negative for injury and pain, : Negative for injury, bleeding, discharge, and swelling, MS/Extremity: Negative for injury and deformity, Skin: Negative for injury, rash, and discoloration, Psych: Negative for depression, anxiety, suicide ideation, homicidal ideation, and hallucinations, Allergy/Immunology: Negative for hives, rash, and allergies, Endocrine: Negative for neck swelling, polydipsia, polyuria, polyphagia, and marked weight changes, Hematologic/Lymphatic: Negative for swollen nodes, abnormal bleeding, and unusual bruising, 19:54 ENT: Positive for ear pain, 19:54 Neuro: Positive for headache, of the left base of the skull and left ear and neck, 19:59 Neck: Negative for swollen nodes, zachery Exam: 19:54 Constitutional: This is a well developed, well nourished patient who is awake, alert, zachery and in no acute distress. Eyes: Pupils equal round and reactive to light, extra-ocular motions intact. Lids and lashes normal. Conjunctiva and sclera are non-icteric and not injected. Cornea within normal limits. Periorbital areas with no swelling, redness, or edema. Neck: Trachea midline, no thyromegaly or masses palpated, and no cervical lymphadenopathy. Supple, full range of motion without nuchal rigidity, or vertebral point tenderness. No Meningismus. Chest/axilla: Normal chest wall appearance and motion. Nontender with no deformity. No lesions are appreciated. Cardiovascular: Regular rate and rhythm with a normal S1 and S2. No gallops, murmurs, or rubs. Normal PMI, no JVD. No pulse deficits. Respiratory: Lungs have equal breath sounds bilaterally, clear to auscultation and percussion. No rales, rhonchi or wheezes noted. No increased work of breathing, no retractions or nasal flaring. Abdomen/GI: Soft, non-tender, with normal bowel sounds. No distension or tympany. No guarding or rebound. No evidence of tenderness throughout. Back: No spinal tenderness. No costovertebral tenderness. Full range of motion. Skin: Warm, dry with normal turgor. Normal color with no rashes, no lesions, and no evidence of cellulitis. MS/ Extremity: Pulses equal, no cyanosis. Neurovascular intact. Full, normal range of motion., bilateral aka Neuro: Awake and alert, GCS 15, oriented to person, place, time, and situation. Cranial nerves II-XII grossly intact. Motor strength 5/5 in all extremities. Sensory grossly intact. Cerebellar exam normal. Normal gait. Psych: Awake, alert, with orientation to person, place and time. Behavior, mood, and affect are within normal limits. 19:54 Head/face: Noted is swelling, that is mild, of the left ear and left base of the skull, 19:54 ENT: TM's: dullness, on the left, erythema, that is moderate, on the left, Mouth: is normal, no acute changes, Lips: normal, Oral mucosa: normal, Gums: normal with healthy appearance, 19:59 Neck: ROM/movement: limited range of motion, that is mild, Meningeal signs: are not zachery present, Kernig's sign is negative, Brudzinski's sign is negative, nuchal rigidity, is not appreciated, 20:44 ECG was reviewed by the Attending Physician. [facility] Vital Signs: 18:06 BP 117 / 91; Pulse 97; Resp 17; Temp 97.1; Pulse Ox 100% ; Weight 50.35 kg; Height 5 ll1 ft. 1 in. ; Pain 8/10; 19:34 BP 123 / 83; Pulse 88; Resp 19; Temp 98(O); Pulse Ox 100% on R/A; Pain 10/10; mt4 20:42 BP 101 / 69; Pulse 84; Resp 16; Pulse Ox 96% on R/A; mt4 21:30 BP 124 / 87; Pulse 89; Resp 16; Pulse Ox 100% on R/A; mt4 18:06 Body Mass Index 20.97 (50.35 kg, 154.94 cm) ll1 18:06 Pain Scale: Adult ll1 19:34 Pain Scale: Adult mt4 [place] Coma Score: 19:34 Eye Response: spontaneous(4). Motor Response: obeys commands(6). Verbal Response: mt4 oriented(5). Total: 15. 19:56 Eye Response: spontaneous(4). Motor Response: obeys commands(6). Verbal Response: zachery oriented(5). Total: 15. MDM: 18:12 Medical Screening Exam initiated zachery 19:56 Differential diagnosis: otitis media, otitis externa, ruptured TM, acute otalgia, zachery barotrauma , cluster headache, meningitis, migraine, otitis, sinusitis, temporal arteritis, tension headache, traumatic injuries, vasomotor headache. Data reviewed: vital signs, nurses notes, lab test result(s), EKG, radiologic studies, CT scan. Consideration of Admission/Observation Escalation of care including admission/observation considered. I considered the following discharge prescriptions or medication management in the emergency department Medications were administered in the Emergency Department. See MAR. Independent interpretation of the following test(s) in the Emergency Department CT Scan: My interpretation is CT HEAD AND C SPINE. Care significantly affected by the following chronic conditions: SEIZURES. 05/31 19:30 Order name: CBC with Diff; Complete Time: 20:39 [facility] 05/31 19:30 Order name: Comprehensive Metabolic Panel [facility] 05/31 19:30 Order name: Troponin HS [facility] 05/31 20:09 Order name: Magnesium [facility] 05/31 20:09 Order name: Phosphorus [facility] 05/31 20:09 Order name: Urinalysis w/ reflexes [facility] 05/31 20:13 Order name: C-Reactive Protein [facility] 05/31 20:13 Order name: Valproic Acid (Depakene) Level [facility] 05/31 18:12 Order name: CT Head C Spine; Complete Time: 19:29 [facility] 05/31 19:54 Order name: CT Head Angio [facility] 05/31 19:54 Order name: CT Neck Angio [facility] 05/31 21:03 Order name: CT; Complete Time: 21:06 [facility] 05/31 21:08 Order name: CT [facility] 05/31 19:30 Order name: EKG; Complete Time: 19:30 [facility] 05/31 18:12 Order name: PO challenge; Complete Time: 19:34 [facility] 05/31 19:30 Order name: EKG - Nurse/Tech; Complete Time: 20:44 [facility] EC:44 Rate is 86 beats/min. Rhythm is regular. QRS [place] is Normal. HI interval is normal. QRS zachery interval is normal. QT interval is normal. No Q waves. T waves are Normal. No ST changes noted. Clinical impression: NSR w/ Non-specific ST/T Changes and No evidence of ischemia. Interpreted by me. Reviewed by me. Administered Medications: 20:05 Drug: Decadron - Dexamethasone IVP 10 mg IVP once Route: IVP; Site: right antecubital; mt4 21:30 Follow up: Response: No adverse reaction mt4 20:06 Drug: NS 0.9% IV 1000 ml IV at 1000 ml once; to be given as a bolus over 60 minutes mt4 Route: IV; Rate: 1000 ml; Site: right antecubital; 21:27 Follow up: Response: No adverse reaction; IV Status: Completed infusion; IV Intake: mt4 1000ml 20:06 Drug: Ketorolac IVP 30 mg IVP once Route: IVP; Site: right antecubital; mt4 21:28 Follow up: Response: No adverse reaction mt4 20:06 Drug: Ondansetron IVP 4 mg IVP once; over 2 minutes Route: IVP; Site: right antecubital;mt4 21:30 Follow up: Response: No adverse reaction mt4 20:09 Drug: morphine IVP or IV 2 mg IVP once over 4 mins Route: IVP; Infused Over: 4 mins; mt4 Site: right antecubital; 21:30 Follow up: Response: No adverse reaction mt4 20:23 Drug: Rocephin IV 2 grams IV at per protocol once; Given slow IV push per pharmarcy mt4 instructions Route: IV; Rate: per protocol; Site: right antecubital; 21:31 Follow up: Response: No adverse reaction mt4 20:23 Drug: vancoMYCIN IVPB 1 grams IVPB once over 2 hrs Route: IVPB; Infused Over: 2 hrs; mt4 Site: right antecubital; 21:31 Follow up: Response: No adverse reaction; IV Status: Infusion continued mt4 20:23 Drug: Diazepam PO 10 mg PO once Route: PO; mt4 21:31 Follow up: Response: No adverse reaction mt4 21:32 Not Given (Patient Refused): morphineor iv 2 mg IVP once over 4 mins mt4 Disposition Summary: 05/31/24 19:58 Hospitalization Ordered Notes: Hospitalization Status: Inpatient Admission zachery Provider: Prince zachery Manzo [facility] Condition: Stable zachery Problem: new zachery Symptoms: have improved zachery Bed/Room Type: Standard [facility] Room Assignment: 219(05/31/24 20:27) cg Diagnosis - Acute serous otitis media, left ear zachery - Acute mastoiditis zachery - Headache zachery Forms: - Medication Reconciliation Form zachery - SBAR form zachery - Leadership Thank You Letter zachery Signatures: Dispatcher [employer] EDMS Kenneth Henriquez MD MD cha Garcia, Cindy RN RN José Miguel Ambrocio RN RN ll1 Hemant Tillman RN RN mt4 Corrections: (The following items were deleted from the chart) 20:13 19:51 C-REACTIVE PROTEIN+C.LAB.BRZ ordered. EDMS EDMS 20:13 19:53 VALPROIC ACID (DEPAKOTE)+C.LAB.BRZ ordered. EDMS EDMS 20:27 19:58 zachery cg
[2024-05-31] MEDS ORDERED: ONDANSETRON 4 MG/2 ML VIAL IV PRN (20:05)
[2024-05-31 20:14] LABS: Absolute Eosinophils 0.1 K/uL (0-0.5); Absolute Lymphocytes (CBC) 2.2 K/uL (0.7-4.9); Absolute Monocytes 0.8 K/uL (0.1-1.3); Absolute Neutrophil 5.1 K/uL (1.8-8.0); Basophils % 0.3 % (0-1.3); Eosinophils % 1.2 % (0-4.4); Lymphocytes % 26.4 % (15.3-44.8); MCH 29.8 pg (27.0-35.0); MCHC 33.2 g/dL (32.0-36.0); MCV 89.6 fL (80-100); MPV 8.8 fL (7.6-11.3); Monocytes % 9.8 % (3.3-12.3); Neutrophils % 62.3 % (41.7-73.7); Platelets 298 thou/uL (152-406); RBC Red Blood Cell Count 3.69 M/uL (3.86-4.86); Red Cell Distribution Width 14.2 % (12.1-15.2)
[2024-05-31] MEDS ORDERED: VANCOMYCIN 1 GM/VIAL ONE (20:14)
[2024-05-31] MEDS ORDERED: CEFTRIAXONE 2000 MG/VIAL ONE (20:14)
[2024-05-31] MEDS ORDERED: NA CHLORIDE 0.9% 100 ML ONE (20:14)
[2024-05-31] MEDS ORDERED: DIAZEPAM 5 MG TABLET ONE (20:14)
[2024-05-31] MEDS ORDERED: NA CHLORIDE 0.9% 250 ML ONE (20:14)
[2024-05-31 20:25] LABS: AST/SGOT 12 U/L (15-37); Albumin 2.9 g/dL (3.4-5.0); Albumin/Globulin Ratio 0.6 (1.1-1.8); Alkaline Phosphatase 70 U/L (45-117); Anion Gap 9.9 mEq/L (5.0-15.0); BUN Blood Urea Nitrogen 24 mg/dL (7-18); Bicarbonate 25 mEq/L (21-32); Bilirubin Total 0.2 mg/dL (0.2-1.0); Globulin 5.1 g/dL (2.3-3.5); Glomerular Filtration Rate 80 ml/min (=/>90); Glucose Level 102 mg/dL (74-106); Potassium 3.9 mEq/L (3.5-5.1); Sodium Level 137 mEq/L (136-145)
[2024-05-31 20:32] LABS: C-Reactive Protein 5.25 mg/L (<3.00); Magnesium 2.1 mg/dL (1.6-2.4); Phosphorus 3.6 mg/dL (2.5-4.9)
--- NOTE | 2024-05-31 20:34 | P.HP ---
Certification for Inpatient Patient admitted to: Observation With expected LOS: <2 Midnights Practitioner: I am a practitioner with admitting privileges, knowledge of patient current condition, hospital course, and medical plan of care. Services: Services provided to patient in accordance with Admission requirements found in Title 42 Section 412.3 of the Code of Federal Regulations Patient History Date of Service: 05/31/24 Reason for admission: Left ear pain History of Present Illness: Patient is a 53-year-old female with a past medical history of seizure disorder, currently on Lamictal and Depakote. She presented to the ER complaining of persistent left ear pain. She has been having the symptoms since mid April of last year. Patient is feeling internal ear pain. She denies drainage or redness. She was seen outpatient and received prescription for levofloxacin on at least 2 separate visits. She reports some improvement for a few days before her symptoms recurred. She was seen yesterday in the ER and discharged with the plan to follow-up with ENT, Dr. Thomason. She was seen by Dr. Chery who evaluated her left ear. No significant abnormalities was seen. Patient is here due to persistent pain. She does not meet criteria for sepsis. During my evaluation, she was alert and awake except she was in distress due to left ear pain. Ear manipulation including anna did not elicit any pain. Physical Examination - Physical Exam General: Acute distress HEENT: Atraumatic, Normocephalic Cardiovascular: No edema, Normal pulses, Regular rate/rhythm, Normal S1 S2 Neurological: Normal speech - Studies Laboratory Data (last 24 hrs) 05/31/24 19:41 WBC 8.20 Hgb 11.0 L Hct 33.0 L Plt Count 298 Assessment and Plan - Problems (Diagnosis) (1) Seizure disorder Current Visit: Yes Status: Acute (2) Left ear pain Current Visit: Yes Status: Acute - Plan Assessment This is a 53-year-old female with a past medical history of seizure disorder currently controlled. She is generally healthy. She presented to the ER complaining of persistent ear pain for the past month. She failed outpatient therapy with levofloxacin. She was seen by ENT and upon evaluation, there was no acute abnormalities found. She presented today due to persistent pain. Her CT head was unremarkable Persistent left ear pain Seizure disorder Plan: Will admit under observation IV fluid infusion Will treat empirically with Zosyn ENT consulted Multimodal pain regimen - Advance Directives Does patient have a Living Will: No Does patient have a Durable POA for Healthcare: No
--- NOTE | 2024-05-31 21:03 | RAD REPORT ---
EXAMINATION: CTA NECK CLINICAL INDICATION: Female, 53 years old. PAIN TECHNIQUE: Axial CT images were obtained from the aortic arch to the skull base after intravenous con trast utilizing angiographic protocol with 3D post-processing (maximum intensity projection images, volume rendered images and/or shaded surface rendered images). One or more of the following dose redu ction techniques were used: Automated exposure control, adjustment of the mA and/or kV according to patient size, and/or iterative reconstruction. Unless otherwise specified, incidental findings do not require dedicated imaging follow-up. [id number]. NASCET criteria used. Mild 0-49% stenosis Moderate 50-69% stenosis Severe 70-99% stenosis COMPARISON: No prior exam. FINDINGS: AORTA: The imaged aortic arch is normal. CCA: The common carotid arteries are patent and normal in caliber. ICA/ECA: Bilateral internal and external carotid arteries are patent. There is no significant interna l carotid artery stenosis. Where applicable, degree of stenosis is measured using NASCET-like criteria. VERTEBRAL: The cervical vertebral arteries are patent and codominant. SOFT TISSUE: No significant neck soft tissue abnormalities. The visualized lung apices are clear. 3D images confirm these findings. IMPRESSION: No arterial dissection or stenosis identified.
--- NOTE | 2024-05-31 21:08 | RAD REPORT ---
EXAMINATION: CTA HEAD CLINICAL INDICATION: Female, 53 years old. HEADACHE TECHNIQUE: Axial CT images were obtained through the head after intravenous contrast utilizing angiog raphic protocol with 3D post-processing (maximum intensity projection images, volume rendered images and/or shaded surface rendered images). One or more of the following dose reduction technique s were used: Automated exposure control, adjustment of the mA and/or kV according to patient size, and/or iterative reconstruction. Unless otherwise specified, incidental findings do not require dedic ated imaging follow-up. COMPARISON: No prior exam. FINDINGS: ICA: The petrous, cavernous, and supraclinoid segments of the bilateral internal carotid arteries are normal. The ophthalmic artery origins are visualized and normal. The posterior communicating arteries are patent. ABDIAS: Anterior cerebral arteries are normal bilaterally. The anterior communicating artery is patent. Hypoplastic left A1 segment. MCA: Middle cerebral arteries are normal bilaterally. FINANCIAL WELLNESS COACH: Posterior cerebral arteries are normal bilaterally. Vertebrobasilar: The vertebral arteries are patent. The basilar artery is normal in appearance. 3D images confirm these findings. IMPRESSION: No occlusion, aneurysm, or hemodynamically significant stenosis identified.
[2024-05-31 21:12] LABS: ALT/SGPT < 14 U/L (13-56); Troponin High Sensitivity < 3.0 pg/mL (<58.9)
[2024-05-31] MEDS: NA CHLORIDE 0.9% 1,000 ML IV SCH (22:50)
[2024-05-31] MEDS: PIPER TAZO 3.375 GM in NA CHLORIDE 0.9% 100 ML IV SCH (22:50)
[2024-06-01 01:33] LABS: Sqamous Epithelial <5 /HPF (None Seen); Urine Bacteria None Seen /HPF (<20); Urine Bilirubin NEGATIVE (Negative); Urine Blood 2+ (Negative); Urine Clarity Clear (Clear); Urine Color Colorless (Yellow); Urine Culture Reflex Order NOT NEEDED; Urine Glucose NEGATIVE (Negative); Urine Ketones NEGATIVE (Negative); Urine Microscopic Reflex YN ORDER UMIC; Urine Mucus Slight /HPF (None Seen); Urine Nitrite NEGATIVE (Negative); Urine Protein NEGATIVE (Negative); Urine RBC 21-50 /HPF (None Seen); Urine Urobilinogen Normal (Normal); Urine WBC <5 /HPF (<5)
[2024-06-01 01:44] LABS: Specific Gravity > 1.030 (1.005-1.030)
[2024-06-01 03:17] VITALS: BMI 20.9
[2024-06-01 03:19] VITALS: O2SAT 100
[2024-06-01] MEDS: HYDROMORPHONE HCL 1 MG/ML INJ IV PRN (03:58)
[2024-06-01] MEDS: ENOXAPARIN 40 MG/0.4 ML SQ SCH (07:55)
[2024-06-01] MEDS: lamoTRIgine 100 MG TAB PO SCH (07:56)
[2024-06-01] MEDS: DIVALPROEX DR 500MG TAB PO SCH (07:56)
--- NOTE | 2024-06-01 14:21 | P.PN ---
Subjective Date of Service: 06/01/24 Chief Complaint: Left ear pain Subjective: No new changes still complaining of left ear pain Review of Systems Unremarkable General: Unremarkable Eyes: Unremarkable ENT: Unremarkable Respiratory: Unremarkable Cardiovascular: Unremarkable Gastrointestinal: Unremarkable Genitourinary: Unremarkable Musculoskeletal: Unremarkable Integumentary: Unremarkable Neurological: Unremarkable Physical Examination - Vital Signs Temperature: 97.5 F Blood Pressure: 85/51 Pulse: 84 Respirations: 16 Pulse Ox (%): 97 - Physical Exam General: Alert HEENT: Atraumatic Neck: Supple Respiratory: Clear to auscultation bilaterally Cardiovascular: No edema Gastrointestinal: Normal bowel sounds Musculoskeletal: No clubbing, No swelling, No contractures Integumentary: No rashes Neurological: Normal gait, Normal speech - Studies Laboratory Data (last 24 hrs) 05/31/24 05/31/24 05/31/24 19:41 19:41 19:41 WBC 8.20 Hgb 11.0 L Hct 33.0 L Plt Count 298 Sodium 137 Potassium 3.9 BUN 24 H Creatinine 0.86 Glucose 102 Phosphorus 3.6 Magnesium 2.1 Total Bilirubin 0.2 AST 12 L ALT < 14 Alkaline Phosphatase 70 Assessment And Plan - Plan 1. Left ear pain - CTA head/neck and C-spine unremarkable - on prn pain meds for pain control - Dr Thomason saw the patient a few days ago and did not see any acute evidence of infection -ENT re-consulted in light of patient's present admission
[2024-06-01] MEDS: KETOROLAC 30 MG/ML INJ IV STA (15:10)
[2024-06-01] MEDS: METHYLPREDNISOLONE 125 MG INJ IV ONE (15:11)
--- NOTE | 2024-06-01 15:57 | P.CNS ---
Date of Consult: 06/01/24 Reason for consultation: Left ear pain, rule out mastoiditis Requesting physician: Dr. Kenneth Henriquez History of present illness: This patient was presenting to the emergency room with left ear pain and underwent evaluation including CT C-spine, CTA head and CTA neck with laboratory studies. Patient was noted to have fluid within the left mastoid cavity. The patient additionally presented to the emergency room on May 30 with similar symptoms and was evaluated by Dr. Mc with CT of the head at that time which demonstrated the left mastoid cavity fluid. The patient was seen in my clinic on May 30. At that point in time the patient complained of a 1 day history of left ear pain that developed suddenly with no history of ear surgery or recurrent/chronic ear infections and no recent URI. She was treated in the emergency room with Toradol with partial improvement in her symptoms. The patient stated at that time that the pain was radiating down her neck and she went to the ER because she was concerned about an aneurysm or stroke or other serious condition. Of note the patient reported treatment by her primary care provider with levofloxacin for an left ear infection. Antibiotic choice of Levaquin seems unusual for an otitis media in someone without a penicillin allergy. At that time the patient had no clinical evidence of acute mastoiditis and there was no evidence of fluid within the middle ear on the left side. Cerumen was removed from the right side in the ENT clinic. I advised the patient at that time that I did not see any evidence of infection in the middle ear or clear clinical evidence of acute mastoiditis on her exam. Based on the location of her pain and tenderness of the neck I suspected a muscle or tendon inflammation and recommended warm compresses, neck stretching exercises and OTC ibuprofen 3 times a day for 3 days. Additional complete head neck exam did not demonstrate any current evidence of other causes for ear pain and there were no clinical findings suggestive of head neck malignancy. I recommended that if conservative measures did not improve the patient return to her primary care physician. Today on additional questioning, the patient indicates the location of her pain as being in the upper level 5 neck region. This is between the sternocleidomastoid muscle and trapezius muscles. The pain seems to radiate up towards the ear as well as around the back of the neck towards the occipital region of the skull. She the denies any fevers. She denies specific concerns in regards to headache. She denies any vision changes. She does not recall pain or other symptoms being exacerbated by chewing or eating in regards to screening for jaw claudication. The patient states that she did not have dinner last night and was made n.p.o. by the ER staff for reasons that are unclear to me. In my conversation with the emergency room staff at approximately 8 PM on May 31, the ER staff indicated a plan to admit the patient to the hospitalist service for pain management. Due to consideration for giant cell arteritis, I requested the emergency room obtain a CRP. I prefer a sedimentation rate for screening for this disorder but this test is no longer offered at this facility. Past medical history: Seizure disorder and hysterectomy Allergies: Benadryl and Demerol Medication: Lamotrigine and divalproex Social history: Denies tobacco use; alcohol less than 1 drink per day Review of systems: Reviewed from ER admission by Dr. Henriquez on May 31, 2024 and essentially unchanged Physical exam: Patient is sitting in bed, she is in no acute distress. The left external ear is unremarkable. The ear canal is clear. The tympanic membrane appears normal with no significant evidence of middle ear fluid, erythema, bulging. Patient does complain of pain with ear exam. The patient's main location of pain is indicated by patient pointing left upper cervical spine in the region of C2-C3 between the paraspinous muscles and posterior border of the sternocleidomastoid muscle. In this area the patient does seem significantly tender but does not have any palpable mass or lymph node. Data review: Laboratory studies from May 30 through are reviewed. The patient had a CBC which is essentially normal with no evidence of leukocytosis. The patient's CRP was very mildly elevated at 5.2. CT of the head, C-spine and CTA of the head and neck are reviewed and were reported by the radiologist as being normal. There was no evidence of vascular dissection or stenosis as a contributing factor to her symptoms. Care coordination: I reviewed this case with colleagues who frequently perform temporal artery biopsy in regards to atypical presentation for giant cell arteritis. Overall the patient's symptoms do not correlate with the common presentations. Additionally her CRP is only mildly elevated. Patient's with giant cell arteritis often have a CRP in the range of 10 or more. Correlation with sedimentation rate would be preferred but is not available at this location. At this time, I do not see clear indication for temporal artery biopsy. I also spoke with the hospitalist service in regards to the patient's presentation, clinical exam findings, imaging and differential diagnosis. Based on available information I continue to suspect a musculoskeletal issue in regards to her symptoms. We discussed initiation of diet as no surgical intervention is indicated at this time. We discussed options for steroids for treatment of acute inflammatory processes related to the muscles, nerves or tendons in this area of the neck. I also provided update and summary of impressions and recommendations with the washhouse hand per his request telephone. Assessment: Acute left neck pain of approximately 3 days with normal imaging studies and laboratory studies with slightly elevated CRP. Although the patient has evidence of fluid within the mastoid, I not feel this is likely to be causing the severity of pain that this patient is experiencing. Recommendations: Based on physical exam findings I do not see a clear indication for additional antibiotic therapy as I suspect the CT finding of fluid within the mastoid is residual from the patient's recent acute otitis media. If the primary team feels strongly that antibiotic therapy is indicated I would consider amoxicillin or Augmentin as these are more likely to cover the common bacteria that causes infectious disease of the middle ear and mastoid. Overall I would continue conservative measures including warm compresses neck stretching massage, anti-inflammatories. The patient may consider outpatient follow-up with neurology for further evaluation of neck pain if not improving. In total I spent more than 60 minutes in communication with the emergency room staff, hospitalist staff, other hospital personnel, review of radiology records, review of prior clinical notes, physical exam and completion of documentation related to this visit.
[2024-06-01] MEDS: AMOX/K CLAV 875 MG TAB PO SCH (21:34)
[2024-06-02] MEDS: ACETAMINOPHEN 500 MG TAB PO PRN (07:58)
[2024-06-02] MEDS: KETOROLAC 30 MG/ML INJ IV STA (08:56)
[2024-06-02 10:34] VITALS: BP 112/68; TEMP 97
--- NOTE | 2024-06-02 12:56 | P.DS ---
Admission Date: 05/31/24 Discharge Date: 06/02/24 Disposition: ROUTINE DISCHARGE Discharge Condition: GOOD Reason for Admission: Left ear pain Hospital Course: 53-year-old female with hx of seizure disorder on lamictal and Depakote, in itially admitted for left ear pain . On admission, underwent CTA of head and neck and CT of C-spine with contrast which were all unremarkable. Patient was seen by ENT specialist, Dr Thomason, who after extensive evaluation, did not see any evidence of infection, recommended discontinuing abx, a dose of steroids which patient received and also received iv Toradol. Symptoms improved and patient was discharged . Vital Signs/Physical Exam: Temp Pulse Resp BP Pulse Ox 97.0 F 82 16 112/68 100 06/02/24 08:00 06/02/24 08:00 06/02/24 08:00 06/02/24 08:00 06/02/24 08:00 General: Oriented x3 HEENT: Atraumatic Neck: Supple Respiratory: Clear to auscultation bilaterally Cardiovascular: No edema Gastrointestinal: Normal bowel sounds Musculoskeletal: No clubbing Integumentary: No rashes Neurological: Normal gait, Normal strength at 5/5 x4 extr Rectal: Normal Laboratory Data at Discharge: WBC 8.20 thou/uL (4.3-10.9) 05/31/24 19:41 Hgb 11.0 g/dL (12.0-15.0) L 05/31/24 19:41 Hct 33.0 % (36.0-45.0) L 05/31/24 19:41 Plt Count 298 thou/uL (152-406) 05/31/24 19:41 Sodium 137 mEq/L (136-145) 05/31/24 19:41 Potassium 3.9 mEq/L (3.5-5.1) 05/31/24 19:41 BUN 24 mg/dL (7-18) H 05/31/24 19:41 Creatinine 0.86 mg/dL (0.55-1.02) 05/31/24 19:41 Glucose 102 mg/dL (74-106) 05/31/24 19:41 Phosphorus 3.6 mg/dL (2.5-4.9) 05/31/24 19:41 Magnesium 2.1 mg/dL (1.6-2.4) 05/31/24 19:41 Total Bilirubin 0.2 mg/dL (0.2-1.0) 05/31/24 19:41 AST 12 U/L (15-37) L 05/31/24 19:41 ALT < 14 U/L (13-56) 05/31/24 19:41 Alkaline Phosphatase 70 U/L (45-117) 05/31/24 19:41 Home Medications: Divalproex Sodium 500 mg PO BID 05/31/24 Lamotrigine [Lamictal] 100 mg PO BID 05/31/24 Acetaminophen [Tylenol] 500 mg PO BID 7 Days #14 06/02/24 Celecoxib [Celebrex] 100 mg PO BID 7 Days #14 06/02/24 lamoTRIgine [Lamictal*] 100 mg PO BID tab 06/02/24 New Medications: Celecoxib [Celebrex] 100 mg PO BID 7 Days #14 Acetaminophen [Tylenol] 500 mg PO BID 7 Days #14 Physician Discharge Instructions: Follow up with PCP within 1 week post discharge . Take medications daily as instructed Followup: Marjorie Lowe MD [Primary Care Provider] -
--- NOTE | 2024-06-07 13:17 | EKG ---
Test Date: 2024-05-31 Test Time: 20:27:19 Plug Paster: AF MEASUREMENT RESULTS: Intervals: Rate: 86 IL: 130 QRSD: 110 QT: 370 QTc: 442 [place]: P: 65 IL: 130 QRS: 15 T: 64 INTERPRETIVE STATEMENTS: Normal sinus rhythm Right bundle branch block Abnormal ECG No previous ECG available for comparison Electronically Signed On 06-07-24 13:06:23 DIVISION ORDER TECHNICIAN by Matthieu Palomo
== END 2024-06-02 12:58 | disposition home or self-care (01) | DRG 153 ==
LOC: ER 17:31 → ERHOLD 20:05 → 2ND 21:56
PROVIDERS: ADMIT Internal Medicine; ATTEND Internal Medicine
DX: H70.002 Acute mastoiditis without complications, left ear (principal); H65.02 Acute serous otitis media, left ear; G40.909 Epilepsy, unspecified, not intractable, without status epilepticus; Z88.5 Allergy status to narcotic agent; Z79.899 Other long term (current) drug therapy; Z90.710 Acquired absence of both cervix and uterus
CPT/HCPCS: 36415; 70450; 70496; 70498; 72125; 80053; 80164; 81001; 82947; 83735; 84100; 84484; 85025; 86140; 93005; 96365; 96375; 99285; J0696; J1100; J1171; J1650; J2270; J2405; J2543; J2919; J7030; J7050; Q9967